=== PATIENT | male | born 1950 | race Caucasian/White ===

== ENCOUNTER → 2017-08-27 10:45 | Outpatient (CLI) | payer BC, SELFPAY ==
[2017-08-27 11:54] LABS: Absolute Lymphocyte Count 0.94 X10^3/ul (0.83-4.51); Absolute Neutrophil Count 2.4 X10^3/uL (2.0-7.7); Basophil# 0.01 X10^3/uL; Basophil% 0.3 % (0-1); Eosinophils% 5.2 % (0-5); Hematocrit 42.6 % (40-54); Hemoglobin 14.5 g/dl (13.0-16.5); Lymphocyte # 0.94 X10^3/ul (4.0); Lymphocyte % 24.2 % (19-41); Mean Corpuscular Hgb 31.1 pg (27.0-32.0); Mean Corpuscular Volume 91.4 fL (80-94); Mean Platelet Vol. 9.9 fl (6.2-12.0); Monocyte# 0.32 X10^3/uL; Monocyte% 8.2 % (0-10); Neutrophil % 61.8 % (47-70); Platelet Count 247 K/mm3 (150-450); RBC Distribution Width CV 13.4 % (11.6-14.6); RBC Distribution Width SD 44.8 fl (35.1-43.9); Red Blood Count 4.66 M/mm3 (4.6-6.2); White Blood Count 3.9 K/mm3 (4.4-11.0)
[2017-08-27 11:56] LABS: POSITIVE COUNT NO; POSITIVE DIFFERENTIAL NO; POSITIVE MORPHOLOGY NO
[2017-08-27 12:41] LABS: Hemoglobin A1c 5.4 % (4.2-6.3)
[2017-08-27 13:18] LABS: Cholesterol 149 mg/dL (200); High Density Lipoprotein 44 mg/dL; Magnesium 2.3 mg/dL (1.6-2.6); Rheumatoid Factor < 10.0 IU/mL (<15); T4 Free Direct 0.99 ng/dL (0.76-1.46); Thyroid Stim Hormone (TSH) 1.95 uIU/mL (0.358-3.74); Triglycerides 82 mg/dL; Very Low Density Lipoprotein 16 mg/dL (5-40)
[2017-08-28 10:48] LABS: Vitamin D,25 Hydroxy 19.8 ng/mL (29.95-100.01)
[2017-08-28 14:30] LABS: ANTINUCLEAR ANTIBODIES DIRECT Negative (Negative)
== END ==
PROVIDERS: Family Provider Family Medicine; PCP Family Medicine; Visit Provider Family Medicine
DX: Z00.00 Encounter for general adult medical examination without abnormal findings (principal); M25.50 Pain in unspecified joint; R53.83 Other fatigue; I48.0 Paroxysmal atrial fibrillation; R68.82 Decreased libido
CPT/HCPCS: 36415; 80061; 80162; 82306; 83036; 83735; 84403; 84439; 84443; 85025; 86038; 86431

== ENCOUNTER → 2018-08-28 10:32 | Outpatient (CLI) | payer BC, SELFPAY ==
[2018-08-28 13:11] LABS: Absolute Lymphocyte Count 0.93 X10^3/ul (0.83-4.51); Absolute Neutrophil Count 2.2 X10^3/uL (2.0-7.7); Basophil# 0.01 X10^3/uL; Basophil% 0.3 % (0-1); Eosinophil# 0.17 X10^3/uL; Eosinophils% 4.7 % (0-5); Hematocrit 43.2 % (40-54); Hemoglobin 14.8 g/dl (13.0-16.5); Lymphocyte # 0.93 X10^3/ul (4.0); Lymphocyte % 25.6 % (19-41); Mean Corp Hgb Conc 34.3 g/gl (32-36); Mean Corpuscular Hgb 31.5 pg (27.0-32.0); Mean Corpuscular Volume 91.9 fL (80-94); Mean Platelet Vol. 9.6 fl (6.2-12.0); Monocyte# 0.34 X10^3/uL; Monocyte% 9.4 % (0-10); Neutrophil # 2.17 X10^3/uL (2.7-7.7); Neutrophil % 59.7 % (47-70); Platelet Count 255 K/mm3 (150-450); RBC Distribution Width CV 13.6 % (11.6-14.6); RBC Distribution Width SD 46.1 fl (35.1-43.9); White Blood Count 3.6 K/mm3 (4.4-11.0)
[2018-08-28 13:12] LABS: POSITIVE COUNT NO; POSITIVE DIFFERENTIAL NO; POSITIVE MORPHOLOGY NO
[2018-08-28 13:13] LABS: ALB/GLOB Ratio 1.7 RATIO (0.9-2.4); AST(SGOT) 7 U/L (15-37); Alanine Aminotransfer ALT/SGPT 21 U/L (16-61); Alkaline Phosphatase 81 U/L (45-117); Anion Gap 4 (5-15); BUN 15 mg/dL (7-18); BUN/Creat Ratio 17.6 RATIO (10-20); Chloride 108 mmol/L (98-107); Cholesterol 173 mg/dL (200); Creatinine, Serum 0.85 mg/dL (0.70-1.30); EST Glomerular Filtration Rate 95 mL/min (>60); Est Glom Filt Rate - Afr Amer 115 mL/min (>60); Globulin 2.3 g/dL (2.2-4.2); Glucose 84 mg/dL (74-106); High Density Lipoprotein 42 mg/dL; Potassium 4.4 mmol/L (3.5-5.1); Protein, Total 6.3 g/dL (6.4-8.2); Sodium Level 139 mmol/L (136-145); Triglycerides 118 mg/dL; Very Low Density Lipoprotein 24 mg/dL (5-40)
== END ==
PROVIDERS: Family Provider Family Medicine; PCP Family Medicine; Visit Provider Family Medicine
DX: I48.0 Paroxysmal atrial fibrillation (principal)
CPT/HCPCS: 36415; 80053; 80061; 84443; 85025

== ENCOUNTER → 2019-09-03 09:49 | Outpatient (CLI) | payer BC, SELFPAY ==
[2019-09-03 12:48] LABS: Absolute Lymphocyte Count 0.79 X10^3/uL (0.83-4.51); Absolute Neutrophil Count 1.9 X10^3/uL (2.0-7.7); Basophil# 0.02 X10^3/uL; Basophil% 0.6 % (0-1); Eosinophil# 0.21 X10^3/uL; Eosinophils% 6.5 % (0-5); Hematocrit 42.1 % (40-54); Hemoglobin 13.5 g/dL (13.0-16.5); Lymphocyte # 0.79 X10^3/ul (4.0); Lymphocyte % 24.6 % (19-41); Mean Corp Hgb Conc 32.1 g/dL (32-36); Mean Corpuscular Hgb 30.7 pg (27.0-32.0); Mean Corpuscular Volume 95.7 fL (80-94); Mean Platelet Vol. 9.5 fl (6.2-12.0); Monocyte# 0.31 X10^3/uL; Monocyte% 9.7 % (0-10); NRBC Flagged by Analyzer 0 % (0-5); Neutrophil # 1.87 X10^3/uL (2.7-7.7); Neutrophil % 58.3 % (47-70); Platelet Count 245 K/mm3 (150-450); RBC Distribution Width CV 13.2 % (11.6-14.6); RBC Distribution Width SD 47.1 fl (35.1-43.9); White Blood Count 3.2 K/mm3 (4.4-11.0)
[2019-09-03 12:59] LABS: ALB/GLOB Ratio 1.4 RATIO (0.9-2.4); AST(SGOT) 12 U/L (15-37); Alanine Aminotransfer ALT/SGPT 22 U/L (16-61); Albumin, Serum 3.8 g/dL (3.2-5.0); Alkaline Phosphatase 82 U/L (45-117); Anion Gap 4 (5-15); BUN 14 mg/dL (7-18); BUN/Creat Ratio 15.9 RATIO (10-20); Calcium,Total 8.8 mg/dL (8.5-10.1); Chloride 107 mmol/L (98-107); Cholesterol 170 mg/dL (200); Creatinine, Serum 0.88 mg/dL (0.70-1.30); EST Glomerular Filtration Rate 91 mL/min (>60); Est Glom Filt Rate - Afr Amer 110 mL/min (>60); Globulin 2.7 g/dL (2.2-4.2); Glucose 94 mg/dL (74-106); High Density Lipoprotein 39 mg/dL; Magnesium 2.3 mg/dL (1.6-2.6); PSA,Total- Diagnostic 3.65 ng/mL (0.0-4.0); Potassium 4.2 mmol/L (3.5-5.1); Protein, Total 6.5 g/dL (6.4-8.2); Sodium Level 139 mmol/L (136-145); Thyroid Stim Hormone (TSH) 3.08 uIU/mL (0.358-3.74); Triglycerides 89 mg/dL; Very Low Density Lipoprotein 18 mg/dL (5-40)
== END ==
PROVIDERS: PCP Family Medicine; Referring Provider Family Medicine; Visit Provider Family Medicine
DX: R97.20 Elevated prostate specific antigen [PSA] (principal); I48.0 Paroxysmal atrial fibrillation
CPT/HCPCS: 36415; 80053; 80061; 83735; 84153; 84443; 85025

== ENCOUNTER → 2020-08-04 11:03 | Outpatient (CLI) | payer MEDICARE, OTHER, SELFPAY ==
[2020-08-04 12:10] LABS: Mean Corp Hgb Conc 32.6 g/dL (32-36); Mean Corpuscular Hgb 30.8 pg (27.0-32.0); Mean Corpuscular Volume 94.5 fL (80-94); Mean Platelet Vol. 8.8 fl (6.2-12.0); Platelet Count 247 K/mm3 (150-450); RBC Distribution Width CV 13.2 % (11.6-14.6); Red Blood Count 4.55 M/mm3 (4.6-6.2); White Blood Count 3.2 K/mm3 (4.4-11.0)
[2020-08-04 12:51] LABS: ALB/GLOB Ratio 1.4 RATIO (0.9-2.4); AST(SGOT) 16 U/L (15-37); Alanine Aminotransfer ALT/SGPT 26 U/L (16-61); Albumin, Serum 3.7 g/dL (3.2-5.0); Alkaline Phosphatase 88 U/L (45-117); Anion Gap 3 (5-15); BUN 15 mg/dL (7-18); BUN/Creat Ratio 18.5 RATIO (10-20); Chloride 108 mmol/L (98-107); Cholesterol 182 mg/dL (200); Creatinine, Serum 0.81 mg/dL (0.70-1.30); EST Glomerular Filtration Rate 100 mL/min (>60); Est Glom Filt Rate - Afr Amer 121 mL/min (>60); Globulin 2.6 g/dL (2.2-4.2); Glucose 89 mg/dL (74-106); High Density Lipoprotein 41 mg/dL; PSA,Total- Diagnostic 4.03 ng/mL (0.0-4.0); Protein, Total 6.3 g/dL (6.4-8.2); Sodium Level 139 mmol/L (136-145); Thyroid Stim Hormone (TSH) 2.78 uIU/mL (0.358-3.74); Triglycerides 103 mg/dL; Very Low Density Lipoprotein 21 mg/dL (5-40)
[2020-08-04 13:13] LABS: Hepatitis C Antibody Non-Reactive (Nonreactive)
== END ==
PROVIDERS: PCP Family Medicine; Referring Provider Family Medicine; Visit Provider Family Medicine
DX: Z12.5 Encounter for screening for malignant neoplasm of prostate (principal); Z11.59 Encounter for screening for other viral diseases; I48.0 Paroxysmal atrial fibrillation
CPT/HCPCS: 36415; 80053; 80061; 84153; 84443; 85027; 86803

== ENCOUNTER → 2021-01-16 16:43 | Outpatient (CLI) | payer MEDICARE, OTHER, SELFPAY ==
[2021-01-16 16:45] LABS: Bacteria 0 SEEN /hpf (None Seen); Squamous Epithelial Cells - UA 0 SEEN /hpf (0-5); White Blood Cells 0 SEEN /hpf (0-5)
[2021-01-16 17:49] LABS: Color, Urine Yellow (Yellow); Glucose, Dipstick Normal (Normal); Ketone-Dipstick Negative (Negative); Leukocyte Esterase-Dipstick Negative /ul (Negative); Nitrite-Dipstick Negative (Negative); Occult Blood-Urine 50 /ul (Negative); Protein-Dipstick 30 mg/dl (Negative); Specific Gravity, Urine 1.025 (1.002-1.030); Urine Bilirubin Dipstick Negative (Negative); Urine Clarity Clear (Clear); Urine Urobilinogen Normal (Normal)
[2021-01-16 17:57] LABS: Mucous, Urine 1+ /hpf (<or=2+); Red Blood Cells-Urine 5-10 SEEN /hpf (0-5)
== END ==
PROVIDERS: PCP Family Medicine; Visit Provider Family Medicine
DX: R30.0 Dysuria (principal)
CPT/HCPCS: 81001; 87086

== ENCOUNTER → 2021-01-17 11:32 | Outpatient (CLI) | payer MEDICARE, OTHER, SELFPAY ==
--- NOTE | 2021-01-17 11:34 | US_ITS ---
STUDY: RENAL ULTRASOUND - COMPLETE REASON FOR EXAM: Male, 70 years old. 2 day history of left flank pain. TECHNIQUE: Ultrasound evaluation of the kidneys was performed with real-time and static north-scale imaging. COMPARISON: None. FINDINGS: RIGHT KIDNEY: Normal location of the right kidney, which is normal in size. The right kidney measures 12.5 cm x 5.6 x 5.3 cm. There is a normal cortex of the right kidney. The renal cortex measures 1.4 cm. There is a 1 cm x 1.3 cm x 0.5 cm cyst. There is a 6 mm nonobstructive right intrarenal calculus. There is no right hydronephrosis. DISTAL RIGHT URETER: There is non-visualization of the distal right ureter. There is no demonstrated right ureterovesical junction calculus. There is a visualized right ureteral jet. LEFT KIDNEY: Normal location of the left kidney, which is normal in size. The left kidney measures 11.6 cm x 5.2 cm x 6.6 cm. There is a normal cortex of the left kidney. The renal cortex measures 1.7 cm. There is a 1.1 cm x 1.2 cm x 1.2 cm renal cyst. There is a 4 mm nonobstructive intrarenal calculus. There is no left hydronephrosis. DISTAL LEFT URETER: There is non-visualization of the distal left ureter. There is no demonstrated left ureterovesical junction calculus. There is no demonstrated left ureteral jet. BLADDER: The distended urinary bladder has a volume of 58 ml. There is a normal wall thickness of the distended urinary bladder. There is no demonstrated mass within the urinary bladder. There are no demonstrated bladder calculi. The prostate measures 4.4 cm x 5.47 x 5.1 cm. This causes indentation at the bladder base. US/Kidney and Bladder IMPRESSION: Small bilateral renal cysts. Nonobstructive bilateral intrarenal calculi. Electronically Signed: Leeroy Tay MD at 15:15 EDT , Service support ,
== END ==
PROVIDERS: PCP Family Medicine; Referring Provider Family Medicine; Visit Provider Family Medicine
DX: R10.9 Unspecified abdominal pain (principal)
CPT/HCPCS: 76770

== ENCOUNTER → 2021-03-20 12:35 | Outpatient (CLI) | payer MEDICARE, OTHER, SELFPAY ==
--- NOTE | 2021-03-20 12:39 | RAD_ITS ---
STUDY: X-RAY - CERVICAL SPINE REASON FOR EXAM: Male, 70 years old. R arm pain, triceps and upper shoulder blade - consistent with re TECHNIQUE: XR Spine Cervical 6 or More Views COMPARISON: None FINDINGS: Normal anterior atlantoaxial articulation. The odontoid process is obscured by the overlying hard palate on the open mouth view. Therefore, it is not fully evaluated by plain film. There is straightening of the normal cervical lordosis. There is multi-level endplate spondylosis. There is multi-level degenerative disc disease with multilevel disc space narrowing. There is multi-level osseous foraminal stenosis. The soft tissue structures are unremarkable. RAD/Cerv Spine Obl/Flex/Ext Comp IMPRESSION: There are degenerative changes as noted above. There is mild straightening of the normal cervical lordosis. This can suggest neck strain. The odontoid process is obscured by the overlying hard palate on the open mouth view. Therefore, it is not fully evaluated by plain film. Electronically Signed: Chino Root MD at 17:13 EST , Service support ,
== END ==
PROVIDERS: PCP Family Medicine; Referring Provider Family Medicine; Visit Provider Family Medicine
DX: M54.12 Radiculopathy, cervical region (principal)
CPT/HCPCS: 36415; 72052

== ENCOUNTER 2021-05-17 11:30 | Outpatient (RCR) | payer MEDICARE, OTHER, SELFPAY ==
--- NOTE | 2021-03-22 12:03 | HP.PTEVAL_ITS ---
Patient's Visit Information JOSE ARMANDO GOEL is a 70 year old M referred to Physical Therapy by Dr. Cresencio Rey MD with a diagnosis of RIGHT ARM PAIN. Date of Evaluation: 03/22/21 Physical Therapist: Young Linares, PT, Cert MDT, OCS - Visit Plan Frequency: 2x /Week Duration: 4 Weeks Plan: PT INTERVETIONS CERVICAL /POSTURAL EX'S,US ,ICTX 15#/19# [id number] AND MANUAL THERAPY - Subjective This 70 y/o male presents to physical therapy with right arm pain since Feb 2021 . Patient has had right posterior shoulder and anterior chest along with numbness triceps with radiating symptoms in arm. Seen DR Nix provided steriod . Seen chiropractor helped temporarily and traction. Patient had x-rays showed DDD. Patient takes Advil. Aggravating factors sleeping on right side, turning neck, driving, sitting . Alleviating factors rest left side. Patient denies LOJA ,dizziness/tinnitus. No abnormal pain. Patient works as talent acquisition administrator ,[employer]. Patient described constant ache ,worse with stabbing. Patient pain affects ability perform ADLS and fire . Patient symptoms affects in affects QOL. SOCIAL: . VOCATION: retire ,volunteer - Pain Right Scapula Pain Intensity (Out of 10): 8 Shoulder Pain Intensity (Out of 10): 8 Pain Intensity Range: 10 - Objective POSTURE: mild forward posture. GAIT: reciprocal pattern. NEURO: c/o paresthesia right arm, reflexes C5-6-7 2/3. AROM: BUE WFL. MMT: 4/5 except shoulders 4-/5. CERVICAL ROM: flexion min loss ,lateral flexion/rotation mod/severe loss ,extension mod/severe loss - Special Tests C/S Radiculapathy - Left Upper limb tension test: Negative C/S Radiculapathy - Right Upper limb tension test: Negative C/S Radiculapathy - Left Spurlings: Negative C/S Radiculapathy - Right Spurlings: Positive C/S Radiculapathy - Left Cervical distraction: Negative C/S Radiculapathy - Right Cervical distraction: Negative C/S Radiculapathy - Left Relief test: Negative C/S Radiculapathy - Right Relief test: Negative - Balance/Special Test Scores Oswestry Neck Score: 20 - Goals Goal 1:: I with HEP for neck arm pain Goal Time Frame: 4-6 Weeks Goal 2:: Improve posture for ADL'S Goal Time Frame: 4-6 Weeks Goal 3:: Patient to demonstrate 50% improvement with decrease right arm pain to improve function Goal Time Frame: 4-6 Weeks Goal 4:: Patient improve cervical ROM for function of recovery Goal Time Frame: 4-6 Weeks Goal 5:: Patient to improve neck owestry score by 5 points by to improve QOL and function - Rehabilitation Potential Physical Therapy Diagnosis: This patient has possible lateral foraminal stenosis right with symptoms affecting right arm and pain with positioning sitting/sleeping and test movements ,traction is better thus benefit from skilled PT Rehabilitation Potential: Good - Anticipated Interventions Patient/Client Instruction: Educate patient on: Condition, Plan of Care For the Purpose of:: To decrease pain, To increase ROM, To improve muscle performance and motor function, To increase tolerance to activity/condition/position, To improve performance and independence with ADL's, To improve ability of physical actions for home/community/work/leisure, To improve health of tissue, To decrease soft tissue restriction, To increase flexibility/ROM, To reduce risk of recurrence Therapeutic Exercise to Include: Strength training, Postural training, Flexibilty training, Active ROM For the Purpose of:: To decrease pain, To improve muscle performance and motor function, To improve ability to perform ADL's, To increase tolerance to activity/condition/position, To improve performance and independence with ADL's, To improve ability of physical actions for home/community/work/leisure, To improve health of tissue, To decrease soft tissue restriction, To increase flexibility/ROM, To reduce risk of recurrence TENS: Yes IF ES: Yes Cryotherapy (ice pack, ice massage): Yes Thermo therapy (hot pack): Yes Ultrasound (thermal/non thermal): Yes Intermittent cervical traction: Yes - 15#-20# For the Purpose of:: To decrease pain, To increase ROM, To improve health of tissue, To decrease soft tissue restriction, To increase flexibility/ROM Thank you for the opportunity to evaluate your patient. For Medicare and Medicare HMO plans, please review the plan of care and approve it. It will need to be FAXED BACK to us at [phone] for Medicare purposes. For Medicare only, by signing this I certify the plan of care. Please let me know if there are questions or concerns regarding this plan of care. Physician Signature: Date:
--- NOTE | 2021-04-17 11:51 | HP.PTREVAL ---
Dr. Cresencio Rey MD, It has been my pleasure to treat JOSE ARMANDO GOEL over the last 9 visits for RIGHT ARM PAIN. Please see the progress note below for an update on the physical therapy plan of care! Subjective: Today feeling good ..taking less advil. Sleeping better.. Has occasional numbness in tripcep. Symptoms described as tightness Objective/Function: POSTURE: mild forward head ,rounded shoulders. NEURO: occasional paresthesia deltoid. MMT: 4/5 grossly. CERVICAL ROM: flexion min/mod loss, lateral flexion/rotation min/mod loss, extension mod loss Plan Plan: CONT POC 2XWEEK FOR 4WEEKS. PT INTERVETIONS CERVICAL /POSTURAL EX'S,US ,ICTX 15#/22# [id number] AND MANUAL THERAPY Balance/Gait/Functional tests - Balance/Special Test Scores Oswestry Neck Score: 11 Goals Goal 1:: I with HEP for neck arm pain Goal Time Frame: 4-6 Weeks Goal Progress: Progressing Goal 2:: Improve posture for ADL'S Goal Time Frame: 4-6 Weeks Goal 3:: Patient to demonstrate 70% improvement with decrease right arm pain to improve function(updated goal) Goal Time Frame: 4-6 Weeks Goal 4:: Patient improve cervical ROM for function of recovery to do job demands and housework tasks 75% of the time. (updated goal) Goal Time Frame: 4-6 Weeks Goal 5:: Patient to improve neck owestry score by 5 points by to improve QOL and function( updated goal) Anticipated Interventions Patient/Client Instruction: Educate patient on: Condition, Plan of Care For the Purpose of:: To decrease pain, To increase ROM, To improve muscle performance and motor function, To increase tolerance to activity/condition/position, To improve performance and independence with ADL's, To improve ability of physical actions for home/community/work/leisure, To improve health of tissue, To decrease soft tissue restriction, To increase flexibility/ROM, To reduce risk of recurrence Therapeutic Exercise to Include: Strength training, Postural training, Flexibilty training, Active ROM For the Purpose of:: To decrease pain, To improve muscle performance and motor function, To improve ability to perform ADL's, To increase tolerance to activity/condition/position, To improve performance and independence with ADL's, To improve ability of physical actions for home/community/work/leisure, To improve health of tissue, To decrease soft tissue restriction, To increase flexibility/ROM, To reduce risk of recurrence TENS: Yes IF ES: Yes Cryotherapy (ice pack, ice massage): Yes Thermo therapy (hot pack): Yes Ultrasound (thermal/non thermal): Yes Intermittent cervical traction: Yes - 15#-20# For the Purpose of:: To decrease pain, To increase ROM, To improve health of tissue, To decrease soft tissue restriction, To increase flexibility/ROM Please do not hesitate to contact me at [phone] by phone or if you have questions or concerns regarding this new plan of care! Sincerely, Young Linares, PT, Cert MDT, OCS
--- NOTE | 2021-05-17 12:00 | HP.PTDCSUM ---
It has been my pleasure to treat JOSE ARMANDO GOEL referred by Dr. Cresencio Rey MD, with the diagnosis of RIGHT ARM PAIN for a total of 18 visit(s). Discharge Date: 05/17/21 Please see the following information for a summary of their discharge status. Subjective: Doing well ready for d/c Right Scapula Pain Intensity (Out of 10): 0 Shoulder Pain Intensity (Out of 10): 0 % Improvement: 85 Objective/Function: POSTURE: WFL. CERVICAL ROM: FLEXION MIN LOSS,ROTATION MIN/MOD LOSS,LATERAL FLEXION MOMD LOSS. MMT: 4/5 grossly Goal 1:: I with HEP for neck arm pain Goal Progress: Goal Met Goal 2:: Improve posture for ADL'S Goal Progress: Goal Met Goal 3:: Patient to demonstrate 70% improvement with decrease right arm pain to improve function(updated goal) Goal Progress: Goal Met Goal 4:: Patient improve cervical ROM for function of recovery to do job demands and housework tasks 75% of the time. (updated goal) Goal Progress: Goal Met Goal 5:: Patient to improve neck owestry score by 5 points by to improve QOL and function( updated goal) Goal Progress: Goal Met Plan: D/C TO HEP Discharge Comments: hep If there are questions or concerns regarding this patient's physical therapy, please feel free to call me at [phone]. Thank you for the referral of this patient. Sincerely, Young Linares, PT, Cert MDT, OCS Balance/Gait/Functional tests - Balance/Special Test Scores Oswestry Neck Score: 0
== END 2021-05-17 19:00 | disposition home or self-care (01) ==
LOC: PT 11:30
PROVIDERS: PCP Family Medicine; Referring Provider Family Medicine; Visit Provider Family Medicine
DX: M79.621 Pain in right upper arm (principal)
CPT/HCPCS: 97012; 97035; 97110; 97162; 97530

== ENCOUNTER 2021-08-08 13:49 | Emergency (ER) | payer MEDICARE, OTHER, SELFPAY ==
[2021-08-08 13:51] VITALS: BP 165/102; PULSE 67; RESP 16; TEMP 36.6; O2SAT 100; BMI 26.1
--- NOTE | 2021-08-08 14:06 | EKG12_ITS ---
Test Reason : BACK PAIN Blood Pressure : / mmHG Vent. Rate : 064 BPM Atrial Rate : 064 BPM P-R Int : 150 ms QRS Dur : 092 ms QT Int : 414 ms P-R-T Axes : 062 029 030 degrees QTc Int : 427 ms Normal sinus rhythm Normal ECG Confirmed by KEVEN MARTINI, TATIANA ([id number]), mapping editor AMY ELLIOTT ([id number]) on 08/10/2021 10:12:00 AM Referred By: Confirmed By:TATIANA BACA MD
--- NOTE | 2021-08-08 14:13 | EDS_ITS ---
HPI History of Present Illness Chief Complaint: Back Detail of Chief Complaint: Back pain for months with metastatic lesion T2 with cord compression Informant: patient, parent and other (Dr. Smith called prior to patient's arrival and prefers transfer to tertiary center) Onset/Context/Timing Onset: Month(s) Injury: - (No history of trauma) Timing: Continuous Quality: Sharp and Aching Location: Thoracic Current Severity: Moderate Maximum Severity: Severe Worsened by: improves with Movement Relieved by: Nothing Associated Symptoms Associated Symptoms: - (No weight loss or night sweats. No change in bowel. No paresthesia or anesthesia extremities); Negative for Numbness, Tingling, Radiation to Right Leg, Radiation to Left Leg, Fever, Abdominal Pain, Dysuria, Unable to Ambulate, Unable to Transfer, Urinary Retention, Urinary Incontinence, Constipation and Fecal Incontinence Narrative Narrative: Patient is a 70-year-old male with history of atrial fibrillation who takes an aspirin a day. He presents from Dr. Smith's office. He had an MRI of his back which revealed a metastatic lesion to T2. There is cord compression. Patient took his last dose of methylprednisolone this morning. He presently denies paresthesia, anesthesia motors. He denies bowel bladder dysfunction. He denies any altered sensation on his torso. He complains of pain. He has no other complaints Prior similar symptoms: Yes Recent Illness/Hospitalization: No [facility] Medical History (Updated 08/08/21 @ 16:[address] Sukhdeep Limon MD) Atrial fibrillation Home Medications aspirin [Aspir-81] 81 mg PO BID 08/08/21 [History Last Taken Unknown] gabapentin 100 mg PO TID 08/08/21 [History Last Taken Unknown] oxycodone-acetaminophen 1 tab PO Q6H PRN 08/08/21 [History Last Taken Unknown] oxycodone-acetaminophen 1 tab PO Q6H PRN PRN 5 Days #20 tablet 08/08/21 [Rx Last Taken Unknown] sotalol 40 mg PO BREAKFAST 08/08/21 [History Last Taken Unknown] sotalol 80 mg PO QHS 08/08/21 [History Last Taken Unknown] Allergy/AdvReac Type Severity Reaction Status Date / Time No Known Allergies Allergy Verified 08/08/21 13:54 Social History (Updated 08/08/21 @ 14:[address] Sukhdeep Limon MD) household members: spouse Smoking Status: Never smoker substance use type: does not use ROS ROS ED Constitutional Constitutional ED: Denies chills, fever(s), subjective, sweats or weight loss Eyes Eyes: Denies blurry vision, change in vision or diplopia ENT ENT ED: Denies ear pain, rhinorrhea or sore throat Cardiovascular Cardiovascular: Denies chest pain, orthopnea, palpitations, paroxysmal nocturnal dyspnea or racing heartbeat Respiratory/Chest Respiratory/Chest: Denies dyspnea, dyspnea on exertion, orthopnea, paroxysmal nocturnal dyspnea or sputum Gastrointestinal Gastrointestinal: Reports other Details: No change in color, consistency or caliber of his stool. He had a colonoscopy performed in March 2021 which was reportedly unremarkable ; Denies abdominal pain, constipation, diarrhea, melena, nausea or vomiting Genitourinary Genitourinary ED: Denies dysuria, hematuria or urinary frequency Musculoskeletal Musculoskeletal: Denies arthralgias, myalgias or neck pain Integumentary Denies abscess, Abrasions or rash Neurologic Neurologic: Denies headache(s), paresthesias or weakness Psychiatric Psychiatric: Denies anxiety or depression Hematologic/Lymphatic Hematologic/Lymphatic: Denies easy bleeding, easy bruising or lymphadenopathy Allergic/Immunologic Allergic/Immunologic ED: Denies urticaria EXAM Physical Exam Const Vital Signs: 08/08/21 13:51 Temperature 97.8 F Temperature Source Temporal Pulse Rate 67 Respiratory Rate 16 Blood Pressure 165/102 H Blood Pressure Mean 123 Pulse Ox 100 Oxygen Delivery Method Room Air Positive well nourished and well developed General Appearance ED: well developed; Negative for NAD or pallor HEENT Reports moist mucous membranes HEENT Narrative: Ears normal. Nares patent. Uvula midline. No erythema or exudate the posterior pharynx. There is no cervical lymphadenopathy. Negative for trauma or tenderness Eyes PERRL and EOMs intact bilaterally General Eye ED: Yes other; Negative for pale conjunctiva or scleral icterus Neck no lymphadenopathy, supple and no JVD General: Negative for tenderness Resp normal respiratory effort and clear to auscultation bilaterally Cardio regular rate, regular rhythm, S1 normal heart sound, S2 normal heart sound and no murmurs GI normal to inspection, nondistended, normoactive bowel sounds, soft to palpation, non-tender and non-distended Back/Spine normal to inspection; Negative for no thoracic nor lumbar tenderness General Back: Negative for CVA tenderness or scar(s) Cervical Spine: Negative for cervical spine tenderness and Negative for paracervical muscle tenderness Thoracic Spine / Upper Back: paraspinal muscle tenderness Extremity normal to inspection and no clubbing, cyanosis or edema General Extremety ED: Negative for edema or tenderness General Extremity: Negative for edema Neuro oriented x3 and no sensory deficits noted Neuro Narrative: There is no altered sensation on the torso to touch. The bicep, brachialis and tricep reflexes are 2+ as well. Sensorium / Orientation: alert Motor Exam: strength 5/5 throughout Deep Tendon Reflexes: Rt Patellar (L4): 2+, Lt Patellar (L4): 2+, Rt Ankle (S1): 2+ and Lt Ankle (S1): 2+ Deep Tendon Reflexes Back: Rt Patellar (L4): 2+, Lt Patellar (L4): 2+, Rt Ankle (S1): 2+ and Lt Ankle (S1): 2+ Plantar Reflex: Downgoing: bilateral (There is no clonus.) Psych mental status grossly normal Skin no rashes or lesions noted and no wounds General Skin Exam: Negative for jaundice or pallor MDM MDM MDM Narrative Medical decision making narrative: Patient presents for transfer to tertiary care center. Since the concern is that he has metastatic lesion with cord compression will obtain chest x-ray especially since he has history of smoking. Also will obtain comprehensive metabolic panel to assess renal function, electrolytes specifically calcium and alkaline phosphatase. Spoke with Dr. Dumont neurosurgeon at [facility]. Since patient has no neurologic deficits and there is no beds available at [facility] he recommended patient calling his office and his office will also reach out to him for him to be seen at the latest by the end of the week. Patient was told he we made a priority so that they can biopsy the mass and determine what best to do. Patient states that would be fine. He was discharged with prescription for Percocet. Lab Data Attestation: I reviewed the patient's lab results. Lab results narrative: White count is under Labs: Laboratory Results - last 24 hr 08/08/21 08/08/21 14:29 14:29 WBC 9.9 RBC 4.68 Hgb 14.9 Hct 45.1 MCV 96.4 H MCH 31.8 MCHC 33.0 RDW Std Deviation 46.4 H RDW Coeff of Avtar 13.2 Plt Count 344 MPV 8.9 Immature Gran % (Auto) 0.300 Neut % (Auto) 80.6 H Lymph % (Auto) 10.5 L [place] % (Auto) 8.0 Eos % (Auto) 0.5 Baso % (Auto) 0.1 Absolute Neuts (auto) 8.0 H Absolute Lymphs (auto) 1.04 Nucleated RBC % 0 Sodium 140 Potassium 4.0 Chloride 104 Carbon Dioxide 30.0 Anion Gap 6 BUN 15 Creatinine 0.91 Estim Creat Clear Calc 84.14 Est GFR (MDRD) Af Amer 106 Est GFR (MDRD) Non-Af 87 BUN/Creatinine Ratio 16.5 Glucose 92 Calcium 9.7 Total Bilirubin 0.50 AST 12 L ALT 26 Alkaline Phosphatase 95 Total Protein 6.9 Albumin 3.5 Globulin 3.4 Albumin/Globulin Ratio 1.0 Radiography X-Ray: - (2 view chest x-ray was independently interpreted by me and reveals chronic changes. No acute findings. Cardiac silhouette and size normal. Perihilar regions unremarkable. Osseous structures reveal degenerative changes of the thoracic spine. This was independently interpreted by me [id number]) Diagnostic Testing: Clinical Impression(s) from Imaging Studies Chest X-Ray 08/08/21 14:38 IMPRESSION: No acute abnormalities. Electronically Signed: Leeroy Tay MD at 14:53 EDT , EKG Initial EKG: Attestation: I personally reviewed and interpreted this EKG as follows: Interpretation: Sinus Rhythm (EKG is normal with a ventricular rate of 64. DC interval is under 50 ms. QRS durations 92 ms. QT duration 414 ms. [place] is normal.) Discharge Plan Triage Chief Complaint: Back ED Provider: Sukhdeep Limon Dx/Rx/DC Orders Clinical Impression: Metastasis to spinal column Instructions: ED Tumor, Uncertain Cause Prescriptions: New oxycodone-acetaminophen [oxycodone-acetaminophen] 1 TABLET tablet 1 tab PO Q6H PRN PRN (Reason: pain) 5 Days Qty: 20 RF: 0 No Action sotalol 80 mg Tablet 80 mg PO QHS RF: 0 sotalol 80 mg Tablet 40 mg PO BREAKFAST RF: 0 aspirin [Aspir-81] 81 mg Tablet,Delayed Release (/Ec) 81 mg PO BID RF: 0 oxycodone-acetaminophen 5-325 mg Tablet 1 tab PO Q6H PRN (Reason: Pain) RF: 0 gabapentin 100 mg Tablet 100 mg PO TID RF: 0 Primary Care Provider: Cresencio Rey Referrals: Cresencio Rey MD [Primary Care Provider] - Activity Restrictions/Additional Instructions: Call Dr. Dumont office tomorrow. His telephone number is [phone] Disposition Disposition: Home, Self Care
[2021-08-08] MEDS: 0.9% Normal Saline 1,000 ML 150 ML IV (14:28)
[2021-08-08 14:34] LABS: Absolute Lymphocyte Count 1.04 X10^3/uL (0.83-4.51); Basophil# 0.01 X10^3/uL; Basophil% 0.1 % (0-1); Eosinophil# 0.05 X10^3/uL; Eosinophils% 0.5 % (0-5); Hematocrit 45.1 % (40-54); Hemoglobin 14.9 g/dL (13.0-16.5); Lymphocyte # 1.04 X10^3/ul (0.83-4.51); Lymphocyte % 10.5 % (19-41); Mean Corpuscular Hgb 31.8 pg (27.0-32.0); Mean Corpuscular Volume 96.4 fL (80-94); Mean Platelet Vol. 8.9 fl (6.2-12.0); Monocyte# 0.79 X10^3/uL; NRBC Flagged by Analyzer 0 % (0-5); Neutrophil # 7.98 X10^3/uL (2.7-7.7); Neutrophil % 80.6 % (47-70); Platelet Count 344 K/mm3 (150-450); RBC Distribution Width CV 13.2 % (11.6-14.6); RBC Distribution Width SD 46.4 fl (35.1-43.9); Red Blood Count 4.68 M/mm3 (4.6-6.2); White Blood Count 9.9 K/mm3 (4.4-11.0)
--- NOTE | 2021-08-08 14:38 | RAD_ITS ---
STUDY: X-RAY CHEST REASON FOR EXAM: Male, 70 years old. Metastatic cancer to spine TECHNIQUE: PA and lateral views of the chest. COMPARISON: None. FINDINGS: The lungs are clear and expanded. Scattered calcified granulomas. There is no demonstrated pleural abnormality. Normal size heart. Normal mediastinum and johnie. Normal visualized pulmonary arteries. There is atherosclerotic tortuosity of the aortic arch and descending thoracic aorta. There is demineralization of the osseous structures. Normal visualized ribs, clavicles, and shoulders. There is no demonstrated abnormality of the visualized soft tissue structures of the upper abdomen. RAD/Chest PA and Lateral IMPRESSION: No acute abnormalities. Electronically Signed: Leeroy Tay MD at 14:53 EDT ,
[2021-08-08 14:49] LABS: AST(SGOT) 12 U/L (15-37); Alanine Aminotransfer ALT/SGPT 26 U/L (16-61); Albumin, Serum 3.5 g/dL (3.2-5.0); Alkaline Phosphatase 95 U/L (45-117); Anion Gap 6 (5-15); BUN 15 mg/dL (7-18); BUN/Creat Ratio 16.5 RATIO (10-20); Calcium,Total 9.7 mg/dL (8.5-10.1); Chloride 104 mmol/L (98-107); Creatinine, Serum 0.91 mg/dL (0.70-1.30); EST Glomerular Filtration Rate 87 mL/min (>60); Est Glom Filt Rate - Afr Amer 106 mL/min (>60); Estimated Creatinine Clearance 84.14 ml/min; Globulin 3.4 g/dL (2.2-4.2); Glucose 92 mg/dL (74-106); Protein, Total 6.9 g/dL (6.4-8.2); Sodium Level 140 mmol/L (136-145)
[2021-08-08] MEDS: HYDROmorphone 1 MG/ML Syringe IV (14:56)
--- NOTE | 2021-08-08 15:24 | NURSING ---
MADE INITIAL CALL TO [facility] MAIN FAXED FACESHEET
--- NOTE | 2021-08-08 15:59 | NURSING ---
[facility] DR PENA FOR DR BEE
[2021-08-08 16:11] VITALS: BP 175/94; PULSE 71; RESP 18; O2SAT 95
--- NOTE | 2021-08-14 15:41 | CASEMGMT ---
ED follow-up phone call: KELSEA MARINO attempted to complete follow-up phone call at this time. No answer, voice message left with return contact information.
== END 2021-08-08 16:27 | disposition home or self-care (01) ==
PROVIDERS: Emergency Provider Emergency Medicine; PCP Family Medicine; Visit Provider Emergency Medicine
DX: C79.51 Secondary malignant neoplasm of bone (principal); G95.20 Unspecified cord compression; Z87.891 Personal history of nicotine dependence; R97.20 Elevated prostate specific antigen [PSA]
CPT/HCPCS: 36415; 71046; 80053; 84153; 85025; 87811; 93005; 99283; J7030; A4216

== ENCOUNTER → 2021-08-08 | Outpatient (CLI) | payer MEDICARE, OTHER, SELFPAY ==
[2021-08-08 12:43] LABS: PSA,Total- Diagnostic 6.18 ng/mL (0.0-4.0)
== END | disposition home or self-care (01) ==
LOC: MTLAB 09:37
PROVIDERS: PCP Family Medicine; Referring Provider Family Medicine; Visit Provider Family Medicine
DX: Z00.00 Encounter for general adult medical examination without abnormal findings (principal); R97.20 Elevated prostate specific antigen [PSA]
CPT/HCPCS: 36415; 84153

== ENCOUNTER 2021-10-21 09:59 | Inpatient (IN) | payer MEDICARE, OTHER, SELFPAY ==
[2021-10-21] VITALS (23 sets, daily range): BP systolic 81–119; BP diastolic 45–70; PULSE 81–110; RESP 15–23; TEMP 36.5–39.4; O2SAT 93–100; BMI 26.9; BMI 26.8
--- NOTE | 2021-10-21 10:05 | ED.RN ---
PT REPORTS DRANK WATER ON WAY OVER. JUST PRIOR TO ORAL TEMP. TOOK TEMP TA WAS 103.0.
--- NOTE | 2021-10-21 10:15 | RAD_ITS ---
STUDY: X-RAY CHEST REASON FOR EXAM: Male, 71 years old. Chest pain and cough TECHNIQUE: Single AP portable view of the chest. COMPARISON: 08/08/2021 FINDINGS: EKG leads overlie the chest The lungs are clear and expanded. There is no demonstrated pleural abnormality. Normal size heart. Normal mediastinum and johnie. Normal visualized pulmonary arteries. Normal visualized aortic arch and descending thoracic aorta. Normal visualized thoracic spine. Normal visualized ribs, clavicles, and shoulders. There is no demonstrated abnormality of the visualized soft tissue structures of the upper abdomen. RAD/Chest 1 View (Portable) IMPRESSION: No acute pulmonary process Electronically Signed: Colton Barry MD at 11:04 EDT ,
--- NOTE | 2021-10-21 10:15 | EKG12_ITS ---
Test Reason : FEVER Blood Pressure : / mmHG Vent. Rate : 105 BPM Atrial Rate : 105 BPM P-R Int : 186 ms QRS Dur : 166 ms QT Int : 370 ms P-R-T Axes : 071 060 -12 degrees QTc Int : 489 ms Sinus tachycardia Right bundle branch block Abnormal ECG Confirmed by EDDIE MARTINI, DORA ([id number]), material expeditor MICK COATES ([id number]) on 10/23/2021 11:03:48 AM Referred By: MC Confirmed By:DORA MORGAN MD
--- NOTE | 2021-10-21 10:16 | EX.ED.DYSGE1 ---
HPI <SANTOS Hadley - Last Filed: 10/21/21 12:36> History of Present Illness Chief Complaint: Fever Narrative Narrative: 71-year-old male with past medical history of A. fib, recent diagnosis of multiple myeloma presents with fever and chills that started at 7:30 AM this morning. He has no other symptoms. He states he just felt tired yesterday. He still been eating and drinking normally. No cough or congestion, chest pain or shortness of breath, vomiting or diarrhea, or urinary symptoms. He states his cancer was diagnosed after he had shoulder pain and had an MRI of the C-spine. It showed bony destruction of the T2 level and he had a fusion of T1-T3 at [facility] on August 18. He had 10 treatments of radiation of the spine and just started chemotherapy with Dr. Kong on October 17. He said he had MRI and CT scans showing the cancer spread to his left hip confirmed by biopsy. These were done at [facility]. [facility] <SANTOS Hadley - Last Filed: 10/21/21 12:36> [facility] Medical History (Updated 10/21/21 @ 20:[address] Mian Maldonado MD) Atrial fibrillation Cancer Kidney stones Subdural hematoma Home Medications aspirin 81 mg tablet,delayed release 81 mg PO BID 08/08/21 [History Last Taken Unknown] gabapentin 100 mg tablet 100 mg PO TID 08/08/21 [History Last Taken Unknown] acyclovir 400 mg tablet 400 mg PO BID 10/21/21 [History Last Taken Unknown] atenolol 25 mg tablet 12.5 mg PO QHS 10/21/21 [History Last Taken Unknown] bortezomib 3.5 mg injection powder for solution (Velcade) 1.3 mg IV TUFR 10/21/21 [History Last Taken Unknown] cyclobenzaprine 5 mg tablet 5 mg PO TID 10/21/21 [History Last Taken Unknown] dexamethasone 4 mg tablet (Decadron) 8 mg PO DAILY Check with primary doctor 10/21/21 [History Last Taken Unknown] flecainide 150 mg tablet 150 mg PO Q12H Check with primary doctor 10/21/21 [History Last Taken Unknown] lenalidomide 15 mg capsule (Revlimid) 15 mg PO DAILY 10/21/21 [History Last Taken Unknown] zoledronic acid 4 mg/100 mL in mannitol 5 %-water intravenous piggybck 1 ea IV QMONTH Check with primary doctor 10/21/21 [History Last Taken 10/11/21 06:00] Allergy/AdvReac Type Severity Reaction Status Date / Time No Known Allergies Allergy Verified 08/08/21 13:54 Family History (Updated 10/21/21 @ 12:[address] Sohail Martínez MD) Father No problems noted. Mother Brain tumor Social History (Updated 08/08/21 @ 14:[address] Sukhdeep Limon MD) household members: spouse Smoking Status: Never smoker substance use type: does not use ROS <SANTOS Hadley - Last Filed: 10/21/21 12:36> ROS ED ROS Narrative Constitutional: Positive for fever, chills, malaise. Eyes: Negative for visual change. ENT: Negative for sore throat, ear pain, rhinorrhea. CVS: Negative for palpitations, chest pain, syncope. Respiratory: Negative for shortness of breath, cough, orthopnea. GI: Negative for abdominal pain, nausea, vomiting, diarrhea, constipation, melena, hematochezia. : Negative for dysuria, hematuria or frequency. Neuro: Negative for headache, motor/sensory dysfunction. Skin: Negative for rash, abscess, or wound. Musc: Negative for joint pain, swelling, trauma. Heme: Negative for easy bruising, bleeding, lymphadenopathy. EXAM <SANTOS Hadley - Last Filed: 10/21/21 12:36> Physical Exam Narrative Exam Narrative: CONST: Patient sitting in no acute distress. EYES: Normal inspection. ENT: Normal inspection, slightly dry mucous membranes. NECK: Normal inspection. RESP: No respiratory distress, CTAB. CVS: Regular rate and rhythm, no murmur, no gallop. ABD: Soft and nontender, no guarding or rebound, nondistended. Back: Healed surgical incision over T-spine has some surrounding redness but he states this is chronic from the radiation treatments. SKIN: Color normal, no rash, warm, dry, intact. EXTREMITIES: Normal appearance, no pedal edema. NEURO: Oriented x4. PSYCH: Normal affect. Const Vital Signs: 10/21/21 09:59 10/21/21 10:04 10/21/21 10:10 Temperature 98.6 F 103.0 F H Temperature Source Oral Temporal Pulse Rate 110 H Respiratory Rate 18 Respiratory Effort Normal Non-Labored Respiratory Pattern Normal Blood Pressure 99/58 L Blood Pressure Mean 71 Pulse Ox 100 Oxygen Delivery Method 10/21/21 10:24 10/21/21 10:31 10/21/21 10:49 Temperature 101.8 F H Temperature Source Oral Pulse Rate Respiratory Rate Respiratory Effort Respiratory Pattern Blood Pressure Blood Pressure Mean Pulse Ox 95 Oxygen Delivery Method Room Air Room Air 10/21/21 11:21 10/21/21 11:21 10/21/21 11:23 Temperature 98.1 F 98.1 F Temperature Source Oral Oral Pulse Rate 97 97 Respiratory Rate 22 H 22 H Respiratory Effort Respiratory Pattern Blood Pressure 112/63 112/63 Blood Pressure Mean 79 Pulse Ox 93 93 Oxygen Delivery Method Room Air Room Air 10/21/21 12:14 10/21/21 12:14 10/21/21 12:20 Temperature 98.5 F 98.5 F Temperature Source Oral Oral Pulse Rate 93 92 Respiratory Rate 16 16 Respiratory Effort Respiratory Pattern Blood Pressure 89/45 L 94/58 L Blood Pressure Mean 59 70 Pulse Ox 94 95 Oxygen Delivery Method Room Air Room Air <Dr. Mian Maldonado MD - Last Filed: 10/21/21 20:58> Physical Exam Const Vital Signs: 10/21/21 09:59 10/21/21 10:04 10/21/21 10:10 Temperature 98.6 F 103.0 F H Temperature Source Oral Temporal Pulse Rate 110 H Respiratory Rate 18 Respiratory Effort Normal Non-Labored Respiratory Pattern Normal Blood Pressure 99/58 L Blood Pressure Mean 71 Pulse Ox 100 Oxygen Delivery Method 10/21/21 10:24 10/21/21 10:31 10/21/21 10:49 Temperature 101.8 F H Temperature Source Oral Pulse Rate Respiratory Rate Respiratory Effort Respiratory Pattern Blood Pressure Blood Pressure Mean Pulse Ox 95 Oxygen Delivery Method Room Air Room Air 10/21/21 11:21 10/21/21 11:21 10/21/21 11:23 Temperature 98.1 F 98.1 F Temperature Source Oral Oral Pulse Rate 97 97 Respiratory Rate 22 H 22 H Respiratory Effort Respiratory Pattern Blood Pressure 112/63 112/63 Blood Pressure Mean 79 Pulse Ox 93 93 Oxygen Delivery Method Room Air Room Air 10/21/21 12:14 10/21/21 12:14 10/21/21 12:20 Temperature 98.5 F 98.5 F Temperature Source Oral Oral Pulse Rate 93 92 Respiratory Rate 16 16 Respiratory Effort Respiratory Pattern Blood Pressure 89/45 L 94/58 L Blood Pressure Mean 59 70 Pulse Ox 94 95 Oxygen Delivery Method Room Air Room Air [facility] <SANTOS Hadley - Last Filed: 10/21/21 12:36> [facility] Narrative Medical decision making narrative: Patient with multiple myeloma on chemo presents with fever and chills starting this morning. He appears well and nontoxic. Vital signs show BP 99/58, HR 110, temperature of 103.0F. Legs examination is really overall very benign which is slightly dry mucous membranes. Sepsis work-up was initiated. Labs show new leukopenia at 1.2 and absolute neutrophil count of 1.1, microcytic anemia at 11.0, normal platelets. There is mild hypokalemia at 3.3 which was replaced orally, otherwise normal electrolytes and renal function. Lactate is 2.9. CXR and UA are negative for infection. COVID and influenza testing both negative. Blood cultures are pending but as of now no source of infection is identified. He was given cefepime due to neutropenic fever and after fluids and Tylenol his vital signs have improved. Dr. Issa he recommended admission for 24 to 48 hours of continued antibiotics and Granix 480 mcg subcu once daily until blood cultures have returned. Case was discussed with Dr. Penaloza for admission. After 1 L IV fluids patient remained hypotensive 88/50s so will be admitted to ICU with additional fluids ordered. 1. History of multiple myeloma on chemotherapy 2. Neutropenic fever with no source 3. Hypokalemia 30 minutes of critical care time was spent by evaluation, review of prior records, reassessment, discussion with consultants, discussion with patient and family in treatment and planning. Lab Data Attestation: I reviewed the patient's lab results. Labs: Laboratory Results - last 24 hr 10/21/21 10/21/21 10/21/21 10:24 10:40 10:44 WBC 1.2 L* RBC 3.63 L Hgb 11.0 L Hct 34.5 L MCV 95.0 H MCH 30.3 MCHC 31.9 L RDW Std Deviation 51.3 H RDW Coeff of [place] 14.9 H Plt Count 204 MPV 8.9 Immature Gran % (Auto) 0.800 Neut % (Auto) 89.1 H Lymph % (Auto) 8.4 L [place] % (Auto) 1.7 Eos % (Auto) 0.0 Baso % (Auto) 0.0 Absolute Neuts (auto) 1.1 L Absolute Lymphs (auto) 0.10 L Nucleated RBC % 0 Differential Comment Diff Path Review May foll PT 12.9 INR 1.0 APTT 23.8 L Sodium Potassium Chloride Carbon Dioxide Anion Gap BUN Creatinine Estim Creat Clear Calc Est GFR (MDRD) Af Amer Est GFR (MDRD) Non-Af BUN/Creatinine Ratio Glucose Lactic Acid Calcium Total Bilirubin AST ALT Alkaline Phosphatase Total Protein Albumin Globulin Albumin/Globulin Ratio Urine Color Yellow Urine Clarity Clear Urine pH 6.0 Ur Specific [place] 1.015 Urine Protein 30 H Urine Glucose (UA) Normal Urine Ketones 5 H Urine Occult Blood Negative Urine Nitrite Negative Urine Bilirubin Negative Urine Urobilinogen Normal Ur Leukocyte Esterase Negative Urine RBC 0 SEEN Urine WBC 0 SEEN Ur Squamous Epith Cells 0 SEEN Urine Bacteria 0 SEEN Urine Mucus 0 SEEN 10/21/21 10/21/21 10:44 10:44 WBC RBC Hgb Hct MCV MCH MCHC RDW Std Deviation RDW Coeff of [place] Plt Count MPV Immature Gran % (Auto) Neut % (Auto) Lymph % (Auto) [place] % (Auto) Eos % (Auto) Baso % (Auto) Absolute Neuts (auto) Absolute Lymphs (auto) Nucleated RBC % Differential Comment Diff Path Review PT INR APTT Sodium 139 Potassium 3.3 L Chloride 108 H Carbon Dioxide 24.0 Anion Gap 7 BUN 14 Creatinine 0.97 Estim Creat Clear Calc 77.79 Est GFR (MDRD) Af Amer 98 Est GFR (MDRD) Non-Af 81 BUN/Creatinine Ratio 14.4 Glucose 80 Lactic Acid 2.9 H* Calcium 7.9 L Total Bilirubin 0.30 AST 12 L ALT 21 Alkaline Phosphatase 76 Total Protein 5.6 L Albumin 3.0 L Globulin 2.6 Albumin/Globulin Ratio 1.2 Urine Color Urine Clarity Urine pH Ur Specific [place] Urine Protein Urine Glucose (UA) Urine Ketones Urine Occult Blood Urine Nitrite Urine Bilirubin Urine Urobilinogen Ur Leukocyte Esterase Urine RBC Urine WBC Ur Squamous Epith Cells Urine Bacteria Urine Mucus Radiography Diagnostic Testing: Clinical Impression(s) from Imaging Studies Chest X-Ray 10/21/21 10:15 IMPRESSION: No acute pulmonary process Electronically Signed: Colton Barry MD at 11:04 EDT , ED attending interpretation shows normal heart size, no acute infiltrate, edema, or effusion. <Dr. Mian Maldonado MD - Last Filed: 10/21/21 20:58> [facility] Lab Data Labs: Laboratory Results - last 24 hr 10/21/21 10/21/21 10/21/21 10:24 10:40 10:44 WBC 1.2 L* RBC 3.63 L Hgb 11.0 L Hct 34.5 L MCV 95.0 H MCH 30.3 MCHC 31.9 L RDW Std Deviation 51.3 H RDW Coeff of [place] 14.9 H Plt Count 204 MPV 8.9 Immature Gran % (Auto) 0.800 Neut % (Auto) 89.1 H Lymph % (Auto) 8.4 L [place] % (Auto) 1.7 Eos % (Auto) 0.0 Baso % (Auto) 0.0 Absolute Neuts (auto) 1.1 L Absolute Lymphs (auto) 0.10 L Nucleated RBC % 0 Differential Comment Diff Path Review May foll PT 12.9 INR 1.0 APTT 23.8 L Sodium Potassium Chloride Carbon Dioxide Anion Gap BUN Creatinine Estim Creat Clear Calc Est GFR (MDRD) Af Amer Est GFR (MDRD) Non-Af BUN/Creatinine Ratio Glucose Lactic Acid Calcium Total Bilirubin AST ALT Alkaline Phosphatase Total Protein Albumin Globulin Albumin/Globulin Ratio Urine Color Yellow Urine Clarity Clear Urine pH 6.0 Ur Specific [place] 1.015 Urine Protein 30 H Urine Glucose (UA) Normal Urine Ketones 5 H Urine Occult Blood Negative Urine Nitrite Negative Urine Bilirubin Negative Urine Urobilinogen Normal Ur Leukocyte Esterase Negative Urine RBC 0 SEEN Urine WBC 0 SEEN Ur Squamous Epith Cells 0 SEEN Urine Bacteria 0 SEEN Urine Mucus 0 SEEN 10/21/21 10/21/21 10:44 10:44 WBC RBC Hgb Hct MCV MCH MCHC RDW Std Deviation RDW Coeff of [place] Plt Count MPV Immature Gran % (Auto) Neut % (Auto) Lymph % (Auto) [place] % (Auto) Eos % (Auto) Baso % (Auto) Absolute Neuts (auto) Absolute Lymphs (auto) Nucleated RBC % Differential Comment Diff Path Review PT INR APTT Sodium 139 Potassium 3.3 L Chloride 108 H Carbon Dioxide 24.0 Anion Gap 7 BUN 14 Creatinine 0.97 Estim Creat Clear Calc 77.79 Est GFR (MDRD) Af Amer 98 Est GFR (MDRD) Non-Af 81 BUN/Creatinine Ratio 14.4 Glucose 80 Lactic Acid 2.9 H* Calcium 7.9 L Total Bilirubin 0.30 AST 12 L ALT 21 Alkaline Phosphatase 76 Total Protein 5.6 L Albumin 3.0 L Globulin 2.6 Albumin/Globulin Ratio 1.2 Urine Color Urine Clarity Urine pH Ur Specific [place] Urine Protein Urine Glucose (UA) Urine Ketones Urine Occult Blood Urine Nitrite Urine Bilirubin Urine Urobilinogen Ur Leukocyte Esterase Urine RBC Urine WBC Ur Squamous Epith Cells Urine Bacteria Urine Mucus Radiography Diagnostic Testing: Clinical Impression(s) from Imaging Studies Chest X-Ray 10/21/21 10:15 IMPRESSION: No acute pulmonary process Electronically Signed: Colton Barry MD at 11:04 EDT Reading Location ID and State: [address] [place] [address] , Service support , Treatment and Re-Evaluation Narrative: I have personally performed a face to face assessment of the patient and have reviewed the JEFF Note. I performed a substantive portion of the visit including all aspects of the following. My perez findings include: History is consistent with fever that started this morning. He had chills. He had a fever a little over 103. However, the patient does not have any specific symptoms such as congestion, facial pain, dental pain, cough shortness of breath, abdominal pain, rash, dysuria. He did have chemotherapy for multiple myeloma on Saturday and prior Saturday. Evidently his white count on Saturday was at the low end of normal. He is on Decadron starting yesterday it sounds like. He contacted his pressfitter and was referred in here today. Exam shows patient in no acute distress. He is awake alert appropriate. He is not at all confused. No sinus tenderness. Lungs are clear. Saturations are normal. Abdomen is benign. No rashes or lesions. Medical Decison Making: Patient will have work-up including blood work, cultures, urine, chest x-ray. These results are pending at this time. Discharge Plan Dx/Rx/DC Orders Clinical Impression: Neutropenic fever, Multiple myeloma, Hypokalemia Disposition Disposition: Acute Care Hospital [facility] Discharge Date/Time: 10/21/21 13:25
[2021-10-21] MEDS: Acetaminophen 500 MG Tablet 1000 MG PO (10:31)
[2021-10-21 10:41] LABS: Bacteria 0 SEEN /hpf (None Seen); Mucous, Urine 0 SEEN /hpf (<or=2+); Red Blood Cells-Urine 0 SEEN /hpf (0-5); Squamous Epithelial Cells - UA 0 SEEN /hpf (0-5); White Blood Cells 0 SEEN /hpf (0-5)
[2021-10-21 10:49] LABS: Color, Urine Yellow (Yellow); Glucose, Dipstick Normal (Normal); Ketone-Dipstick 5 mg/dl (Negative); Leukocyte Esterase-Dipstick Negative /ul (Negative); Nitrite-Dipstick Negative (Negative); Occult Blood-Urine Negative /ul (Negative); Protein-Dipstick 30 mg/dl (Negative); Specific Gravity, Urine 1.015 (1.002-1.030); Urine Bilirubin Dipstick Negative (Negative); Urine Clarity Clear (Clear); Urine Urobilinogen Normal (Normal)
[2021-10-21] MEDS: 0.9% Normal Saline 1,000 ML 999 ML IV ×2 (10:49→12:18)
[2021-10-21 10:57] LABS: Absolute Neutrophil Count 1.1 X10^3/uL (2.0-7.7); Hematocrit 34.5 % (40-54); Lymphocyte % 8.4 % (19-41); Mean Corp Hgb Conc 31.9 g/dL (32-36); Mean Corpuscular Hgb 30.3 pg (27.0-32.0); Mean Platelet Vol. 8.9 fl (6.2-12.0); Monocyte# 0.02 X10^3/uL; Monocyte% 1.7 % (0-10); NRBC Flagged by Analyzer 0 % (0-5); Neutrophil # 1.06 X10^3/uL (2.7-7.7); Neutrophil % 89.1 % (47-70); POSITIVE COUNT YES; POSITIVE DIFFERENTIAL YES; Platelet Count 204 K/mm3 (150-450); RBC Distribution Width CV 14.9 % (11.6-14.6); RBC Distribution Width SD 51.3 fl (35.1-43.9); Red Blood Count 3.63 M/mm3 (4.6-6.2); White Blood Count 1.2 K/mm3 (4.4-11.0)
[2021-10-21 11:01] LABS: Differential Indicated SCAN CRITERIA MET
[2021-10-21 11:06] LABS: Prothrombin Time (Protime)PT. 12.9 SECONDS (11.7-14.9)
[2021-10-21 11:07] LABS: Partial Thromboplast Time 23.8 Seconds (24.1-36.2)
[2021-10-21 11:16] LABS: ALB/GLOB Ratio 1.2 RATIO (0.9-2.4); AST(SGOT) 12 U/L (15-37); Alanine Aminotransfer ALT/SGPT 21 U/L (16-61); Alkaline Phosphatase 76 U/L (45-117); Anion Gap 7 (5-15); BUN 14 mg/dL (7-18); BUN/Creat Ratio 14.4 RATIO (10-20); Calcium,Total 7.9 mg/dL (8.5-10.1); Chloride 108 mmol/L (98-107); Creatinine, Serum 0.97 mg/dL (0.70-1.30); EST Glomerular Filtration Rate 81 mL/min (>60); Est Glom Filt Rate - Afr Amer 98 mL/min (>60); Estimated Creatinine Clearance 77.79 ml/min; Globulin 2.6 g/dL (2.2-4.2); Glucose 80 mg/dL (74-106); Potassium 3.3 mmol/L (3.5-5.1); Protein, Total 5.6 g/dL (6.4-8.2); Sodium Level 139 mmol/L (136-145)
[2021-10-21 11:20] LABS: Lactic Acid 2.9 mmol/L (0.4-1.9)
[2021-10-21] MEDS: Potassium Chloride Oral Tablet 20 MEQ PO (12:17)
--- NOTE | 2021-10-21 12:39 | PCM.HP.STD ---
HPI - General General Date of Admission: 10/21/21 Date of Service: 10/21/21 Chief Complaint: Fever HPI Rasheed GOEL, is a 71 M recently diagnosed with multiple myeloma in August 2021 who began chemo a week prior to his admission. Patient did receive 2 doses of Velcade during the week. Patient woke up on the morning of his presentation with fever. He also did admit to chills. Denied any cough. Denied any dysuria. Patient called his oncologist and was directed to the emergency department. In the ED patient was found to be neutropenic and found to have relative hypotension. Initially did respond to IV fluid however systolic blood pressure dropped back to the 80s. Was also found to have lactic acidosis. An assessment of sepsis secondary to neutropenic fever made admitted to intensive care unit for further management [facility] Medical History (Updated 10/21/21 @ 13:[address] Sohail Martínez MD) Atrial fibrillation Cancer Home Medications aspirin 81 mg tablet,delayed release 81 mg PO BID 08/08/21 [History Last Taken Unknown] gabapentin 100 mg tablet 100 mg PO TID 08/08/21 [History Last Taken Unknown] acyclovir 400 mg tablet 400 mg PO BID 10/21/21 [History Last Taken Unknown] atenolol 25 mg tablet 12.5 mg PO QHS 10/21/21 [History Last Taken Unknown] bortezomib 3.5 mg injection powder for solution (Velcade) 1.3 mg IV TUFR 10/21/21 [History Last Taken Unknown] cyclobenzaprine 5 mg tablet 5 mg PO TID 10/21/21 [History Last Taken Unknown] dexamethasone 4 mg tablet (Decadron) 8 mg PO DAILY 10/21/21 [History Last Taken Unknown] flecainide 150 mg tablet 150 mg PO Q12H 10/21/21 [History Last Taken Unknown] lenalidomide 15 mg capsule (Revlimid) 15 mg PO DAILY 10/21/21 [History Last Taken Unknown] zoledronic acid 4 mg/100 mL in mannitol 5 %-water intravenous piggybck 1 ea IV QMONTH 10/21/21 [History Last Taken Unknown] Allergy/AdvReac Type Severity Reaction Status Date / Time No Known Allergies Allergy Verified 08/08/21 13:54 Family History (Updated 10/21/21 @ 12:[address] Sohail Martínez MD) Father No problems noted. Mother Brain tumor Social History (Updated 08/08/21 @ 14:[address] Sukhdeep Limon MD) household members: spouse Smoking Status: Never smoker substance use type: does not use ROS ROS Narrative GENERAL: fever, chills, HEENT: denies headache, sinus congestion, or drainage, RESPIRATORY: denies cough, sputum production, CARDIAC: denies chest pain, palpitations, orthopnea, PND GASTROINTESTINAL: denies abdominal pain, nausea, GENITOURINARY: denies dysuria, urgency, frequency, heamaturia EXTREMITY: denies swelling MUSCULOSKELETAL: denies current joint pain or tenderness NEUROLOGIC: denies focal numbness, weakness, tingling HEMATOLOGIC: denies easy bruising and/or hemorrhage INTEGUMENT: denies rashes PSYCHIATRIC: denies suicidal or homicidal ideation Vital Signs Vital Signs Vital Signs: 10/21/21 09:59 10/21/21 10:04 10/21/21 10:10 Temperature 98.6 F 103.0 F H Temperature Source Oral Temporal Pulse Rate 110 H Respiratory Rate 18 Respiratory Effort Normal Non-Labored Respiratory Pattern Normal Blood Pressure 99/58 L Blood Pressure Mean 71 Pulse Ox 100 Oxygen Delivery Method 10/21/21 10:24 10/21/21 10:31 10/21/21 10:49 Temperature 101.8 F H Temperature Source Oral Pulse Rate Respiratory Rate Respiratory Effort Respiratory Pattern Blood Pressure Blood Pressure Mean Pulse Ox 95 Oxygen Delivery Method Room Air Room Air 10/21/21 11:21 10/21/21 11:21 10/21/21 11:23 Temperature 98.1 F 98.1 F Temperature Source Oral Oral Pulse Rate 97 97 Respiratory Rate 22 H 22 H Respiratory Effort Respiratory Pattern Blood Pressure 112/63 112/63 Blood Pressure Mean 79 Pulse Ox 93 93 Oxygen Delivery Method Room Air Room Air 10/21/21 12:14 10/21/21 12:14 10/21/21 12:20 Temperature 98.5 F 98.5 F Temperature Source Oral Oral Pulse Rate 93 92 Respiratory Rate 16 16 Respiratory Effort Respiratory Pattern Blood Pressure 89/45 L 94/58 L Blood Pressure Mean 59 70 Pulse Ox 94 95 Oxygen Delivery Method Room Air Room Air Weight Weight: 92.533 kg Body Mass Index (BMI) 26.9 Physical Exam Narrative GENERAL: cooperative HEENT: Atraumatic; EYES; Anicteric, Normal Conjunctiva NECK; supple, normal thyroid, RESPIRATORY: Diminished to auscultation CARDIOVASCULAR: Regular S1 S2, GI: soft, normoactive bowel sounds, : No Renal angle tenderness; EXTREMITIES: No edema, no clubbing, MUSCULOSKELETAL: no muscle wasting NEURO: Awake; no lateralizing signs. SKIN: No Rash PSYCH; Flat affect Results Lab / Micro Data Result Diagrams: 10/21/21 10:40 10/21/21 10:44 Labs: Laboratory Results - last 24 hr 10/21/21 10:24: Urine Color Yellow, Urine Clarity Clear, Urine pH 6.0, Ur Specific [place] 1.015, Urine Protein 30 H, Urine Glucose (UA) Normal, Urine Ketones 5 H, Urine Occult Blood Negative, Urine Nitrite Negative, Urine Bilirubin Negative, Urine Urobilinogen Normal, Ur Leukocyte Esterase Negative, Urine RBC 0 SEEN, Urine WBC 0 SEEN, Ur Squamous Epith Cells 0 SEEN, Urine Bacteria 0 SEEN, Urine Mucus 0 SEEN 10/21/21 10:40: WBC 1.2 L*, RBC 3.63 L, Hgb 11.0 L, Hct 34.5 L, MCV 95.0 H, MCH 30.3, MCHC 31.9 L, RDW Std Deviation 51.3 H, RDW Coeff of [place] 14.9 H, Plt Count 204, MPV 8.9, Immature Gran % (Auto) 0.800, Neut % (Auto) 89.1 H, Lymph % (Auto) 8.4 L, [place] % (Auto) 1.7, Eos % (Auto) 0.0, Baso % (Auto) 0.0, Absolute Neuts (auto) 1.1 L, Absolute Lymphs (auto) 0.10 L, Nucleated RBC % 0, Differential Comment , Diff Path Review August10/21/21 10:44: PT 12.9, INR 1.0, APTT 23.8 L 10/21/21 10:44: Sodium 139, Potassium 3.3 L, Chloride 108 H, Carbon Dioxide 24.0, Anion Gap 7, BUN 14, Creatinine 0.97, Estim Creat Clear Calc 77.79, Est GFR (MDRD) Af Amer 98, Est GFR (MDRD) Non-Af 81, BUN/Creatinine Ratio 14.4, Glucose 80, Calcium 7.9 L, Total Bilirubin 0.30, AST 12 L, ALT 21, Alkaline Phosphatase 76, Total Protein 5.6 L, Albumin 3.0 L, Globulin 2.6, Albumin/Globulin Ratio 1.2 10/21/21 10:44: Lactic Acid 2.9 H* Micro: Microbiology 10/21/21 10:31 Nasal Secretion SARS-CoV-2 & FLU Antigen (Rapid) - Final Radiology Impression Chest X-Ray 10/21/21 10:15 IMPRESSION: No acute pulmonary process Electronically Signed: Colton Barry MD at 11:04 EDT , Assessment & Plan Assessment/Plan (1) Neutropenic fever: PLAN: Plan Patient is a 71-year-old gentleman admitted with fever 1. Sepsis ? Secondary to neutropenic fever. Patient has been admitted to the intensive care unit currently being managed with aggressive IV fluid resuscitation, broad-spectrum antibiotic therapy with Vanco and cefepime after cultures have been obtained. Patient response to initial therapy being monitored with serial lactic acid levels 2. Recent diagnosis of multiple myeloma ? Patient apparently has been mets to the spine and recently had surgery to T2 with fusion. Patient is on Revlimid did continue consult placed to patient's oncologist. Patient is on Decadron did continue 3. Paroxysmal A. fib ? Rate controlled on flecainide did continue 4. Anemia ? Secondary to patient multiple myeloma monitoring H&H with plans to transfuse if hemoglobin falls below 7 or patient is deemed to be symptomatic 5. DVT prophylaxis ? SC Lovenox Advance planning; did discuss with the patient and family regarding advanced directives as well as CODE STATUS. Did explain the various scenarios involved ( FULL CODE, DNR CCA, DNR CCA with no intubation, and DNR CC and what each meant) patient elected to full code with CPR and intubation if needed. Order was placed. Time spent on discussion 18 minutes. Total CC time spent evaluating patient, review of data, initial management orders, discussion with other providers involved in patient's care and subsequent review; 50-minute. Charges/Coding Procedures Hospitalists Procedures: 55145 Critial Care 1st Hr Multi Select Codes Hospitalists' Procedures Procedures: 87465 Critial Care 1st Hr and 32500 Advncd Care Plan 30 Min
--- NOTE | 2021-10-21 12:55 | ED.RN ---
CALLED [facility] FOR GRANLINDSAY ARREOLA- RENETTA NOT SENT UP TO ER.
[2021-10-21] MEDS: TBO-FILGRASTIM 480 MCG/0.8 ML ML SC (13:13)
[2021-10-21] MEDS: 0.9% Normal Saline 1,000 ML 200 ML IV (13:30)
[2021-10-21 14:51] LABS: Reflex Lactate? Y
[2021-10-21 15:48] LABS: Lactic Acid 1.7 mmol/L (0.4-1.9)
[2021-10-21] MEDS: cycloBENZAPRine HCl 5 MG TABLET PO ×2 (16:20→21:47)
[2021-10-21] MEDS: dexAMETHasone 4 MG Tablet 8 MG PO (16:21)
[2021-10-21] MEDS: Aspirin E.C. 81 MG Tablet PO (16:22)
[2021-10-21] MEDS: 0.9% Saline Lock 10 ML Syringe IV (16:25)
--- NOTE | 2021-10-21 17:36 | PCM.RX.CS ---
Consult Pharmacy has been consulted to manage selected antiobiotic: Vancomycin Type of Consult: New start Suspected Infection: Meningitis, Other - Neutropenic fever Prior Doses of Antibiotics Received/Current Regimen: Received 2000mg iv loading dose x 1 Labs: Sodium 139 mmol/L (136-145) 10/21/21 10:44 Potassium 3.3 mmol/L (3.5-5.1) L 10/21/21 10:44 Chloride 108 mmol/L (98-107) H 10/21/21 10:44 Carbon Dioxide 24.0 mmol/L (21.0-32.0) 10/21/21 10:44 Anion Gap 7 (5-15) 10/21/21 10:44 BUN 14 mg/dL (7-18) 10/21/21 10:44 Creatinine 0.97 mg/dL (0.70-1.30) 10/21/21 10:44 Est GFR (MDRD) Af Amer 98 mL/min (>60) 10/21/21 10:44 Est GFR (MDRD) Non-Af 81 mL/min (>60) 10/21/21 10:44 BUN/Creatinine Ratio 14.4 RATIO (10-20) 10/21/21 10:44 Glucose 80 mg/dL (74-106) 10/21/21 10:44 Microbiology: Microbiology 10/21/21 16:35 Mucosa - Nasopharyngeal Rapid RSV (DFA) - Final 10/21/21 16:35 Mucosa - Nasopharyngeal Influenza Types A,B Direct FA (HUMBERTO) - Final 10/21/21 10:31 Nasal Secretion SARS-CoV-2 & FLU Antigen (Rapid) - Final Weight used for dosin.3 kg Estimated Creatinine Clearance: 78 ml/min Goal Trough: 15-20 mcg/mL Pharmacy Plan for Drug Dosing: Will begin 1250mg iv q12h per protocol. Trough level ordered for 10.23.21 before 4th dose. Pharmacy Service will continue to monitor and adjust dosing as required. Follow-Up Labs: Trough Vancomycin - 7.18.22 @0330 before 0400 dose
[2021-10-21] MEDS: TITRATION PARAMETER CHANGE 1 EACH IV (18:31)
[2021-10-21] MEDS: 0.9% Normal Saline 1,000 ML 75 ML IV (21:42)
[2021-10-21] MEDS: Gabapentin 100 MG Capsule PO (21:47)
[2021-10-21] MEDS: Acyclovir 200 MG Capsule 400 MG PO (21:47)
[2021-10-21] MEDS: Flecainide 150 MG Tablet PO (21:47)
[2021-10-22] VITALS (13 sets, daily range): BP systolic 99–138; BP diastolic 61–78; PULSE 69–83; RESP 18–22; TEMP 36.2–36.7; O2SAT 95–100
[2021-10-22 04:10] LABS: Absolute Neutrophil Count 5.5 X10^3/uL (2.0-7.7); Hematocrit 31.7 % (40-54); Hemoglobin 10.2 g/dL (13.0-16.5); Mean Corp Hgb Conc 32.2 g/dL (32-36); Mean Corpuscular Hgb 30.5 pg (27.0-32.0); Mean Corpuscular Volume 94.9 fL (80-94); Mean Platelet Vol. 9.3 fl (6.2-12.0); NRBC Flagged by Analyzer 0 % (0-5); POSITIVE DIFFERENTIAL YES; POSITIVE MORPHOLOGY YES; Platelet Count 203 K/mm3 (150-450); RBC Distribution Width CV 15.3 % (11.6-14.6); RBC Distribution Width SD 52.7 fl (35.1-43.9); Red Blood Count 3.34 M/mm3 (4.6-6.2); White Blood Count 5.8 K/mm3 (4.4-11.0)
[2021-10-22 04:11] LABS: Differential Indicated SCAN CRITERIA MET
[2021-10-22 04:28] LABS: Anion Gap 5 (5-15); BUN 12 mg/dL (7-18); BUN/Creat Ratio 17.7 RATIO (10-20); Calcium,Total 7.5 mg/dL (8.5-10.1); Chloride 111 mmol/L (98-107); Creatinine, Serum 0.68 mg/dL (0.70-1.30); EST Glomerular Filtration Rate 122 mL/min (>60); Est Glom Filt Rate - Afr Amer 148 mL/min (>60); Estimated Creatinine Clearance 75.46 ml/min; Glucose 128 mg/dL (74-106); Magnesium 2.2 mg/dL (1.6-2.6); Potassium 3.9 mmol/L (3.5-5.1); Sodium Level 139 mmol/L (136-145)
[2021-10-22 05:11] LABS: Scan Smear per Review Criteria MANUAL DIFF
[2021-10-22 05:24] LABS: Lymphocyte 2 % (19-41); Metamyelocyte 8 % (0-1); Monocyte 4 % (0-10); Neutrophil-Band 24 % (0-5); Neutrophil-Segmented 62 % (47-70); Total Cells Counted 100 (MANUAL DIFF)
[2021-10-22 05:25] LABS: Absolute Lymphocyte Count 0.12 X10^3/uL (0.83-4.51); Lymphocyte # 0.12 X10^3/ul (0.83-4.51); Neutrophil # 5.47 X10^3/uL (2.7-7.7)
[2021-10-22 05:26] LABS: Platelet Estimate ADEQUATE (ADEQ)
[2021-10-22 05:27] LABS: Ovalocyte 1+; Red Cell Morphology N CHROM NORMAL (NORM C&C)
--- NOTE | 2021-10-22 05:35 | EX.PCM.CONCC ---
Assessment & Plan Assessment/Plan (1) Neutropenic fever: PLAN: Plan RECOMMENDATIONS: 1. Continue empiric antimicrobials while awaiting finalized blood and urine culture results. 2. Okay to stop continuous fluids from my perspective. 3. Continue appropriate DVT prophylaxis. 4. Continue Granix as ordered. 5. Encourage incentive spirometer use and mobilize patient as tolerated. 6. The patient is medically stable for transfer out of the intensive care unit. 7. Given the patient's lack of further ICU or pulmonary needs, will sign off. Please call with any additional questions. IMPRESSIONS: 1. Neutropenic fever The patient presented to the hospital with generalized malaise, chills and fever after recently being started on chemotherapy for multiple myeloma. While there was some initial concern for sepsis, aside from a mildly elevated lactate, there was no evidence of end-organ dysfunction. The patient is nontoxic in appearance. No definitive source of infection has yet to be identified. Therefore, sepsis has been ruled out from my perspective. Lactic acidemia has resolved with fluid resuscitation. The patient remains hemodynamically stable on room air. I would plan to continue empiric antimicrobials while awaiting finalized blood and urine culture results. Regardless, the patient is stable for transfer out of the medical intensive care unit. 2. Recent diagnosis of multiple myeloma Continue supportive measures as noted above along with Granix as ordered. 3. Anemia/paroxysmal atrial fibrillation Complicates care, management, recovery and prognosis. Continue home medications as indicated. This note was generated with [employer] dictation software. It may contain incorrect words, spelling, and punctuation that were not noted in checking the note before signing. HPI Consult Data Date of Consult: 10/22/21 HPI Narrative Reason for Consultation: Sepsis HPI Narrative: The patient is a 71-year-old male, with a history as outlined below, who presented to the emergency department on October 21 with generalized malaise, fevers and chills. The patient was apparently recently diagnosed with multiple myeloma and was just started on chemotherapy this past Saturday. He is currently followed by Dr. Martinez at [facility]. On presentation to the emergency department, the patient was noted to be febrile and tachycardic. Blood pressures were initially somewhat tenuous, but he was maintaining appropriate oxygen saturations on room air. Initial laboratory evaluation revealed a potassium of 3.3 with normal creatinine. 24% bandemia was noted. Lactate was elevated at 2.9. Urine analysis was unremarkable. Initial chest x-ray demonstrated no acute cardiopulmonary process. Rapid influenza and RSV were negative. Strep and urine Legionella antigens were negative. COVID antigen testing was negative. The patient received supplemental IV fluid hydration and was started on antimicrobials. He was subsequently admitted to the medical intensive care unit for further management. [facility] Medical History (Updated 10/21/21 @ 20:[address] Mian Maldonado MD) Atrial fibrillation Cancer Kidney stones Subdural hematoma Home Medications aspirin 81 mg tablet,delayed release 81 mg PO BID 08/08/21 [History Last Taken Unknown] gabapentin 100 mg tablet 100 mg PO TID 08/08/21 [History Last Taken Unknown] acyclovir 400 mg tablet 400 mg PO BID 10/21/21 [History Last Taken Unknown] atenolol 25 mg tablet 12.5 mg PO QHS 10/21/21 [History Last Taken Unknown] bortezomib 3.5 mg injection powder for solution (Velcade) 1.3 mg IV TUFR 10/21/21 [History Last Taken Unknown] cyclobenzaprine 5 mg tablet 5 mg PO TID 10/21/21 [History Last Taken Unknown] dexamethasone 4 mg tablet (Decadron) 8 mg PO DAILY Check with primary doctor 10/21/21 [History Last Taken Unknown] flecainide 150 mg tablet 150 mg PO Q12H Check with primary doctor 10/21/21 [History Last Taken Unknown] lenalidomide 15 mg capsule (Revlimid) 15 mg PO DAILY 10/21/21 [History Last Taken Unknown] zoledronic acid 4 mg/100 mL in mannitol 5 %-water intravenous piggybck 1 ea IV QMONTH Check with primary doctor 10/21/21 [History Last Taken 10/11/21 06:00] Allergy/AdvReac Type Severity Reaction Status Date / Time No Known Allergies Allergy Verified 08/08/21 13:54 Family History (Updated 10/21/21 @ 12:[address] Sohail Martínez MD) Father No problems noted. Mother Brain tumor Social History (Updated 08/08/21 @ 14:[address] Sukhdeep Limon MD) household members: spouse Smoking Status: Never smoker substance use type: does not use ROS Constitutional Constitutional: Reports chills, fatigue, fever(s) and malaise Eyes Eyes: Denies blurry vision or change in vision ENT HEENT: Denies dizziness, dysphagia, headache(s), loss taste/smell or nasal congestion Cardiovascular Cardiovascular: Denies chest pain or dyspnea Respiratory/Chest Respiratory/Chest: Denies chest tightness, cough or dyspnea Gastrointestinal Gastrointestinal: Denies abdominal pain, diarrhea, nausea or vomiting Genitourinary Genitourinary: Denies difficulty urinating Musculoskeletal Musculoskeletal: Denies arthralgias or back pain Integumentary Integumentary: Denies lesions, rash or skin ulcer Neurologic Neurologic: Denies abnormal gait or abnormal speech Psychiatric Psychiatric: Denies anxiety or depression Endocrine Endocrinology: Reports fatigue Hematologic/Lymphatic Hematologic/Lymphatic: Denies easy bleeding or easy bruising Physical Exam Const alert, oriented x3 and no apparent distress General Appearance: cooperative HEENT normocephalic, head/scalp atraumatic and moist oral mucous membranes Eyes PERRL, EOMs intact bilaterally and conjunctivae normal Neck supple General: trachea midline Chest inspection of chest normal Resp normal respiratory effort Auscultation: Negative for rales, rhonchi or wheezes Cardio regular rate and regular rhythm GI normal to inspection, nondistended, normoactive bowel sounds Extremity no clubbing, cyanosis or edema Skin no rashes or lesions noted Neuro CN's II-XII intact bilaterally, moves all extremities and no focal motor deficits Psych cooperative and affect normal Lab / Micro Data Result Diagrams: 10/22/21 04:00 10/22/21 04:00 Labs: Laboratory Results - last 24 hr 10/21/21 10:24: Urine Color Yellow, Urine Clarity Clear, Urine pH 6.0, Ur Specific [place] 1.015, Urine Protein 30 H, Urine Glucose (UA) Normal, Urine Ketones 5 H, Urine Occult Blood Negative, Urine Nitrite Negative, Urine Bilirubin Negative, Urine Urobilinogen Normal, Ur Leukocyte Esterase Negative, Urine RBC 0 SEEN, Urine WBC 0 SEEN, Ur Squamous Epith Cells 0 SEEN, Urine Bacteria 0 SEEN, Urine Mucus 0 SEEN 10/21/21 10:40: WBC 1.2 L*, RBC 3.63 L, Hgb 11.0 L, Hct 34.5 L, MCV 95.0 H, MCH 30.3, MCHC 31.9 L, RDW Std Deviation 51.3 H, RDW Coeff of [place] 14.9 H, Plt Count 204, MPV 8.9, Immature Gran % (Auto) 0.800, Neut % (Auto) 89.1 H, Lymph % (Auto) 8.4 L, [place] % (Auto) 1.7, Eos % (Auto) 0.0, Baso % (Auto) 0.0, Absolute Neuts (auto) 1.1 L, Absolute Lymphs (auto) 0.10 L, Nucleated RBC % 0, Differential Comment , Diff Path Review August foll 10/21/21 10:44: PT 12.9, INR 1.0, APTT 23.8 L 10/21/21 10:44: Sodium 139, Potassium 3.3 L, Chloride 108 H, Carbon Dioxide 24.0, Anion Gap 7, BUN 14, Creatinine 0.97, Estim Creat Clear Calc 77.79, Est GFR (MDRD) Af Amer 98, Est GFR (MDRD) Non-Af 81, BUN/Creatinine Ratio 14.4, Glucose 80, Calcium 7.9 L, Total Bilirubin 0.30, AST 12 L, ALT 21, Alkaline Phosphatase 76, Total Protein 5.6 L, Albumin 3.0 L, Globulin 2.6, Albumin/Globulin Ratio 1.2 10/21/21 10:44: Lactic Acid 2.9 H* 10/21/21 15:10: Lactic Acid 1.7 10/22/21 04:00: WBC 5.8, RBC 3.34 L, Hgb 10.2 L, Hct 31.7 L, MCV 94.9 H, MCH 30.5, MCHC 32.2, RDW Std Deviation 52.7 H, RDW Coeff of [place] 15.3 H, Plt Count 203, MPV 9.3, Immature Gran % (Auto) ANIMAL HOSPITAL CLERK, Neut % (Auto) ANIMAL HOSPITAL CLERK, Lymph % (Auto) ANIMAL HOSPITAL CLERK, [place] % (Auto) ANIMAL HOSPITAL CLERK, Eos % (Auto) ANIMAL HOSPITAL CLERK, Baso % (Auto) ANIMAL HOSPITAL CLERK, Absolute Neuts (auto) 5.5, Absolute Lymphs (auto) 0.12 L, Total Counted 100, Neutrophils % (Manual) 62, Band Neutrophils % 24 H, Lymphocytes % (Manual) 2 L, Monocytes % (Manual) 4, Metamyelocytes % 8 H, Nucleated RBC % 0, Diff Path Review August, Platelet Estimate ADEQUATE, RBC Morphology N CHROM, Ovalocytes 1+ 10/22/21 04:00: Sodium 139, Potassium 3.9, Chloride 111 H, Carbon Dioxide 23.0, Anion Gap 5, BUN 12, Creatinine 0.68 L, Estim Creat Clear Calc 75.46, Est GFR (MDRD) Af Amer 148, Est GFR (MDRD) Non-Af 122, BUN/Creatinine Ratio 17.7, Glucose 128 H, Calcium 7.5 L, Magnesium 2.2 Micro: Microbiology 10/21/21 15:10 Urine, Clean Catch Legionella Antigen - Final 10/21/21 15:10 Urine, Clean Catch Streptococcus pneumoniae Antigen (M - Final 10/21/21 16:35 Mucosa - Nasopharyngeal Rapid RSV (DFA) - Final 10/21/21 16:35 Mucosa - Nasopharyngeal Influenza Types A,B Direct FA (HUMBERTO) - Final 10/21/21 10:31 Nasal Secretion SARS-CoV-2 & FLU Antigen (Rapid) - Final Radiology Impression Chest X-Ray 10/21/21 10:15 IMPRESSION: No acute pulmonary process Electronically Signed: Colton Barry MD at 11:04 EDT , Charges/Coding Visit Charges Inpatient E&M: 27593 Init Hosp L3
[2021-10-22] MEDS: cycloBENZAPRine HCl 5 MG TABLET PO ×3 (06:28→21:57)
[2021-10-22] MEDS: Gabapentin 100 MG Capsule PO ×3 (06:28→21:57)
--- NOTE | 2021-10-22 07:24 | PCM.PN.HOSP ---
Subjective Subjective Patient seen did not require pressors. Lactic acid level trended down. WBC count trending up. Plan for patient to be transferred from the intensive care unit to [facility] floor Objective Data Objective Data Vital Signs: Vital Signs Temp Pulse Resp BP Pulse Ox O2 Del Method 97.2 F L 77 18 135/74 H 100 Room Air 10/22/21 04:00 10/22/21 07:00 10/22/21 07:00 10/22/21 07:00 10/22/21 07:00 10/22/21 07:00 Oxygen Delivery Method Room Air Weight: 92.397 kg Body Mass Index (BMI) 26.8 Intake & Output: Intake and Output for Last 24 Hours 10/20/21 10/21/21 10/22/21 23:59 23:59 23:59 Intake Total 4130.00 / 4130.00 842.5 / 842.5 Output Total 1100 / 1100 1300 / 1300 Balance 3030.00 / 3030.00 -457.5 / -457.5 Lab / Micro Data Result Diagrams: 10/22/21 04:00 10/22/21 04:00 Labs: Laboratory Results - last 24 hr 10/21/21 10:24: Urine Color Yellow, Urine Clarity Clear, Urine pH 6.0, Ur Specific [place] 1.015, Urine Protein 30 H, Urine Glucose (UA) Normal, Urine Ketones 5 H, Urine Occult Blood Negative, Urine Nitrite Negative, Urine Bilirubin Negative, Urine Urobilinogen Normal, Ur Leukocyte Esterase Negative, Urine RBC 0 SEEN, Urine WBC 0 SEEN, Ur Squamous Epith Cells 0 SEEN, Urine Bacteria 0 SEEN, Urine Mucus 0 SEEN 10/21/21 10:40: WBC 1.2 L*, RBC 3.63 L, Hgb 11.0 L, Hct 34.5 L, MCV 95.0 H, MCH 30.3, MCHC 31.9 L, RDW Std Deviation 51.3 H, RDW Coeff of [place] 14.9 H, Plt Count 204, MPV 8.9, Immature Gran % (Auto) 0.800, Neut % (Auto) 89.1 H, Lymph % (Auto) 8.4 L, [place] % (Auto) 1.7, Eos % (Auto) 0.0, Baso % (Auto) 0.0, Absolute Neuts (auto) 1.1 L, Absolute Lymphs (auto) 0.10 L, Nucleated RBC % 0, Differential Comment , Diff Path Review August foll 10/21/21 10:44: PT 12.9, INR 1.0, APTT 23.8 L 10/21/21 10:44: Sodium 139, Potassium 3.3 L, Chloride 108 H, Carbon Dioxide 24.0, Anion Gap 7, BUN 14, Creatinine 0.97, Estim Creat Clear Calc 77.79, Est GFR (MDRD) Af Amer 98, Est GFR (MDRD) Non-Af 81, BUN/Creatinine Ratio 14.4, Glucose 80, Calcium 7.9 L, Total Bilirubin 0.30, AST 12 L, ALT 21, Alkaline Phosphatase 76, Total Protein 5.6 L, Albumin 3.0 L, Globulin 2.6, Albumin/Globulin Ratio 1.2 10/21/21 10:44: Lactic Acid 2.9 H* 10/21/21 15:10: Lactic Acid 1.7 10/22/21 04:00: WBC 5.8, RBC 3.34 L, Hgb 10.2 L, Hct 31.7 L, MCV 94.9 H, MCH 30.5, MCHC 32.2, RDW Std Deviation 52.7 H, RDW Coeff of [place] 15.3 H, Plt Count 203, MPV 9.3, Immature Gran % (Auto) NUTRITION COUNSELOR, Neut % (Auto) NUTRITION COUNSELOR, Lymph % (Auto) NUTRITION COUNSELOR, [place] % (Auto) NUTRITION COUNSELOR, Eos % (Auto) NUTRITION COUNSELOR, Baso % (Auto) NUTRITION COUNSELOR, Absolute Neuts (auto) 5.5, Absolute Lymphs (auto) 0.12 L, Total Counted 100, Neutrophils % (Manual) 62, Band Neutrophils % 24 H, Lymphocytes % (Manual) 2 L, Monocytes % (Manual) 4, Metamyelocytes % 8 H, Nucleated RBC % 0, Diff Path Review August foll, Platelet Estimate ADEQUATE, RBC Morphology N CHROM, Ovalocytes 1+ 10/22/21 04:00: Sodium 139, Potassium 3.9, Chloride 111 H, Carbon Dioxide 23.0, Anion Gap 5, BUN 12, Creatinine 0.68 L, Estim Creat Clear Calc 75.46, Est GFR (MDRD) Af Amer 148, Est GFR (MDRD) Non-Af 122, BUN/Creatinine Ratio 17.7, Glucose 128 H, Calcium 7.5 L, Magnesium 2.2 Micro: Microbiology 10/21/21 15:10 Urine, Clean Catch Legionella Antigen - Final 10/21/21 15:10 Urine, Clean Catch Streptococcus pneumoniae Antigen (M - Final 10/21/21 16:35 Mucosa - Nasopharyngeal Rapid RSV (DFA) - Final 10/21/21 16:35 Mucosa - Nasopharyngeal Influenza Types A,B Direct FA (HUMBERTO) - Final 10/21/21 10:31 Nasal Secretion SARS-CoV-2 & FLU Antigen (Rapid) - Final Radiography Diagnostic Testing: Radiology Impression Chest X-Ray 10/21/21 10:15 IMPRESSION: No acute pulmonary process Electronically Signed: Colton Barry MD at 11:04 EDT , Physical Exam Narrative GENERAL: cooperative HEENT: Atraumatic; EYES; Anicteric, Normal Conjunctiva NECK; supple, normal thyroid, RESPIRATORY: Diminished to auscultation CARDIOVASCULAR: Regular S1 S2, GI: soft, normoactive bowel sounds, : No Renal angle tenderness; EXTREMITIES: No edema, no clubbing, MUSCULOSKELETAL: no muscle wasting NEURO: Awake; no lateralizing signs. SKIN: No Rash PSYCH; Flat affect Assessment & Plan Assessment/Plan (1) Neutropenic fever: PLAN: Plan Patient is a 71-year-old gentleman admitted with fever 1. Sepsis ? Secondary to neutropenic fever. Patient has been admitted to the intensive care unit currently being managed with aggressive IV fluid resuscitation, broad-spectrum antibiotic therapy with Vanco and cefepime after cultures have been obtained. Patient response to initial therapy being monitored with serial lactic acid levels ? 10/22/2021; Patient seen did not require pressors. Lactic acid level trended down. WBC count trending up. Plan for patient to be transferred from the intensive care unit to [facility] floor. We will also plan to continue with current antibiotic therapy pending culture results 2. Recent diagnosis of multiple myeloma ? Patient apparently has been mets to the spine and recently had surgery to T2 with fusion. Patient is on Revlimid did continue consult placed to patient's oncologist. Patient is on Decadron did continue 3. Chemo induced neutropenia ? Patient is on Granix with subsequent monitoring of CBC ordered 4. Anemia ? Secondary to patient multiple myeloma monitoring H&H with plans to transfuse if hemoglobin falls below 7 or patient is deemed to be symptomatic 5. Paroxysmal A. fib ? Rate controlled on flecainide did continue 6. DVT prophylaxis ? SC Lovenox Charges/Coding Visit Charges Inpatient E&M: 75064 Subs Hosp L3
[2021-10-22] MEDS: Aspirin E.C. 81 MG Tablet PO ×2 (08:48→16:46)
[2021-10-22] MEDS: Enoxaparin 40 MG/0.4 ML Syringe SC (08:49)
[2021-10-22] MEDS: TBO-FILGRASTIM 300 MCG/0.5 ML ML SC (08:49)
[2021-10-22] MEDS: Acyclovir 200 MG Capsule 400 MG PO ×2 (08:52→21:58)
[2021-10-22] MEDS: Flecainide 150 MG Tablet PO ×2 (08:52→21:58)
[2021-10-22] MEDS: 0.9% Saline Lock 10 ML Syringe IV (21:58)
[2021-10-23 02:00] VITALS: BP 121/85; PULSE 72; RESP 18; TEMP 36.6; O2SAT 97
[2021-10-23 04:41] LABS: Hemoglobin 9.2 g/dL (13.0-16.5); Mean Corp Hgb Conc 31.7 g/dL (32-36); Mean Corpuscular Hgb 30.2 pg (27.0-32.0); Mean Corpuscular Volume 95.1 fL (80-94); Mean Platelet Vol. 9.3 fl (6.2-12.0); POSITIVE COUNT YES; POSITIVE DIFFERENTIAL YES; POSITIVE MORPHOLOGY YES; Platelet Count 161 K/mm3 (150-450); RBC Distribution Width CV 15.3 % (11.6-14.6); Red Blood Count 3.05 M/mm3 (4.6-6.2); White Blood Count 10.4 K/mm3 (4.4-11.0)
[2021-10-23] MEDS: 0.9% Saline Lock 10 ML Syringe IV ×2 (04:45→09:12)
[2021-10-23 04:49] LABS: Differential Indicated MANUAL DIFF
[2021-10-23 04:58] LABS: Vancomycin, Trough Level 13.3 ug/mL (5.0-15.0)
[2021-10-23 05:34] LABS: Anion Gap 4 (5-15); BUN 8 mg/dL (7-18); BUN/Creat Ratio 13.5 RATIO (10-20); Calcium,Total 7.4 mg/dL (8.5-10.1); Chloride 111 mmol/L (98-107); Creatinine, Serum 0.59 mg/dL (0.70-1.30); EST Glomerular Filtration Rate 143 mL/min (>60); Est Glom Filt Rate - Afr Amer 173 mL/min (>60); Estimated Creatinine Clearance 75.46 ml/min; Glucose 83 mg/dL (74-106); Potassium 3.6 mmol/L (3.5-5.1); Sodium Level 140 mmol/L (136-145)
--- NOTE | 2021-10-23 05:42 | PCM.RX.CS ---
Consult Pharmacy has been consulted to manage selected antiobiotic: Vancomycin Type of Consult: Follow-up Labs: Sodium 140 mmol/L (136-145) 10/23/21 04:27 Potassium 3.6 mmol/L (3.5-5.1) 10/23/21 04:27 Chloride 111 mmol/L (98-107) H 10/23/21 04:27 Carbon Dioxide 25.0 mmol/L (21.0-32.0) 10/23/21 04:27 Anion Gap 4 (5-15) L 10/23/21 04:27 BUN 8 mg/dL (7-18) 10/23/21 04:27 Creatinine 0.59 mg/dL (0.70-1.30) L 10/23/21 04:27 Est GFR (MDRD) Af Amer 173 mL/min (>60) 10/23/21 04:27 Est GFR (MDRD) Non-Af 143 mL/min (>60) 10/23/21 04:27 BUN/Creatinine Ratio 13.5 RATIO (10-20) 10/23/21 04:27 Glucose 83 mg/dL (74-106) 10/23/21 04:27 Vancomycin Trough 13.3 ug/mL (5.0-15.0) 10/23/21 04:27 Microbiology: Microbiology 10/21/21 15:10 Urine, Clean Catch Urine Culture - Preliminary Culture exhibits no growth. 10/21/21 10:24 Urine, Clean Catch Urine Culture - Preliminary Culture exhibits no growth. 10/21/21 15:10 Urine, Clean Catch Legionella Antigen - Final 10/21/21 15:10 Urine, Clean Catch Streptococcus pneumoniae Antigen (M - Final 10/21/21 16:35 Mucosa - Nasopharyngeal Rapid RSV (DFA) - Final 10/21/21 16:35 Mucosa - Nasopharyngeal Influenza Types A,B Direct FA (HUMBERTO) - Final 10/21/21 10:31 Nasal Secretion SARS-CoV-2 & FLU Antigen (Rapid) - Final Goal Trough: 15-20 mcg/mL Pharmacy Plan for Drug Dosing: Pharmacy Service will continue to monitor and adjust dosing as required. TROUGH 13.3 AT 12 HRS. SCr DECREASED FROM 0.68 TO 0.59. INCREASE VANCO TO 1500 Q12 AND FOLLOW UP TROUGH PRIOR TO 4TH DOSE Follow-Up Labs: Trough Vancomycin Labs to be done on [date and time ordered]: 10/25 @ 7491
[2021-10-23] MEDS: Gabapentin 100 MG Capsule PO (06:41)
[2021-10-23] MEDS: cycloBENZAPRine HCl 5 MG TABLET PO (06:41)
[2021-10-23 06:48] LABS: Anisocytosis 1+; Macrocytosis 1+; Platelet Estimate ADEQUATE (ADEQ)
[2021-10-23 06:57] LABS: Absolute Neutrophil Count 9.3 X10^3/uL (2.0-7.7)
[2021-10-23 06:58] LABS: Absolute Lymphocyte Count 0.42 X10^3/uL (0.83-4.51); Lymphocyte 4 % (19-41); Metamyelocyte 1 % (0-1); Monocyte 5 % (0-10); Myelocyte 1 % (0-0); Neutrophil-Band 55 % (0-5); Neutrophil-Segmented 34 % (47-70); Total Cells Counted 100 (MANUAL DIFF)
[2021-10-23 08:58] VITALS: BP 129/79; PULSE 77; RESP 18; TEMP 36.6; O2SAT 100
[2021-10-23] MEDS: Aspirin E.C. 81 MG Tablet PO (09:01)
[2021-10-23] MEDS: Flecainide 150 MG Tablet PO (09:01)
[2021-10-23] MEDS: Enoxaparin 40 MG/0.4 ML Syringe SC (09:02)
[2021-10-23] MEDS: TBO-FILGRASTIM 300 MCG/0.5 ML ML SC (09:06)
[2021-10-23] MEDS: Acyclovir 200 MG Capsule 400 MG PO (09:12)
--- NOTE | 2021-10-23 09:29 | DCINST_ITS ---
Discharge Instructions Diet Discharge Diet: No restrictions Activity Discharge Activity: Return to Normal Activity Dressing / Incision Call your doctor if you observe: Fever of 101 or Higher, Shortness of breath, Dizziness, Fainting spells, Swelling in the ankles, Chest pain and Increased palpitations (irregular heartbeat) Follow Up Care Test Results: Test results from this visit will be discussed in further detail at your follow- up appointment, if applicable. Discharge Plan Admission Admit Date/Time: 10/21/21 12:28 Attending Provider: Lavon Candelario Primary Care Provider: Cresencio Rey Consulting Providers: Marito Dempsey ; Samy Gill ; Chanelel Yost NP ; Sohail Martínez Discharge Orders/Prescriptions Prescriptions: New levofloxacin 750 mg tablet 750 mg PO DAILY Qty: 7 0RF Continued aspirin 81 mg Tablet,Delayed Release (Dr/Ec) 81 mg PO BID gabapentin 100 mg Tablet 100 mg PO TID flecainide 150 mg Tablet 150 mg PO Q12H atenolol 25 mg Tablet 12.5 mg PO QHS acyclovir 400 mg Tablet 400 mg PO BID dexamethasone [Decadron] 4 mg Tablet 8 mg PO DAILY Rx Instructions: only on day of chemo and day after(2 doses each treatment) cyclobenzaprine 5 mg Tablet 5 mg PO TID bortezomib [Velcade] 3.5 mg Recon Soln 1.3 mg IV TUFR Rx Instructions: administer on days 1, 8, 15, and 22 of a 35-day/5-week cycle lenalidomide [Revlimid] 15 mg Capsule 15 mg PO DAILY Rx Instructions: swallow whole with glass of water; do not open, crush, chew , break, or dissolve zoledronic [id number] 4 mg/100 mL Piggyback 1 ea IV QMONTH Referrals / Follow Up: Cresencio Rey MD [Primary Care Provider] - Within 1 Week Disposition Disposition (needs filled in before D/C Order can be placed): Home, Self Care
--- NOTE | 2021-10-23 10:44 | PCM.DC.SUM ---
Providers Date of Admission: 10/21/21 Primary Care Physician: Dr. Cresencio Rey MD Consultations 10/21/21 13:24 Consult: Business Analysis Consultant / Pulmonary Medicine Routine Consulting Provider: Pulmonary Medicine lanette Harris Reason for Consult: sepsis EMERGENT Consult: No MD Notified: Yes Date Notified: 10/21/21 Time Notified: 19:55 Method of Notification: Text Reason For Visit: NEUTROPENIC FEVER Diagnosis Discharge Diagnosis (1) Neutropenic fever: Status: Acute Code(s): D70.9 - Neutropenia, unspecified; R50.81 - Fever presenting with conditions classified elsewhere Medications at Discharge Home Medications aspirin 81 mg tablet,delayed release 81 mg PO BID 08/08/21 gabapentin 100 mg tablet 100 mg PO TID 08/08/21 acyclovir 400 mg tablet 400 mg PO BID 10/21/21 atenolol 25 mg tablet 12.5 mg PO QHS 10/21/21 bortezomib 3.5 mg injection powder for solution (Velcade) 1.3 mg IV TUFR 10/21/21 cyclobenzaprine 5 mg tablet 5 mg PO TID 10/21/21 dexamethasone 4 mg tablet (Decadron) 8 mg PO DAILY Check with primary doctor 10/21/21 flecainide 150 mg tablet 150 mg PO Q12H Check with primary doctor 10/21/21 lenalidomide 15 mg capsule (Revlimid) 15 mg PO DAILY 10/21/21 zoledronic acid 4 mg/100 mL in mannitol 5 %-water intravenous piggybck 1 ea IV QMONTH Check with primary doctor 10/21/21 levofloxacin 750 mg tablet 750 mg PO DAILY #7 tabs 10/23/21 Hospital Course Operations None Procedures None Summary of Care Provided Minutes Spent on Discharge: 40 Hospital Course: Per HPI: JOSE ARMANDO GOEL, is a 71 M recently diagnosed with multiple myeloma in August 2021 who began chemo a week prior to his admission.? Patient did receive 2 doses of Velcade during the week.? Patient woke up on the morning of his presentation with fever.? He also did admit to chills.? Denied any cough.? Denied any dysuria.? Patient called his oncologist and was directed to the emergency department.? In the ED patient was found to be neutropenic and found to have relative hypotension.? Initially did respond to IV fluid however systolic blood pressure dropped back to the 80s.? Was also found to have lactic acidosis.? An assessment of sepsis secondary to neutropenic fever made admitted to intensive care unit for further management Hospital Course: 1. Sepsis of unknown etiology with neutropenic fever due to chemo induced neutropenia for his multiple myeloma?71-year-old male present to the hospital with neutropenic fever. He received Granix and had a significant recovery in his white count. All cultures have come back negative and he is remained afebrile. He was on cefepime and vancomycin and this will be changed to Levaquin on discharge for 7 days. He is on flecainide for his A. fib however he is on no other QT prolonging medications. I recommend that he follow-up with his PCP as well as his oncologist as an outpatient. I discussed with him the plan for discharge today and he expressed understanding of the risk benefits of going home and would like to go home today. I discussed with him that all of his cultures were negative and to continue with the antibiotic for another 7 days. 2. Paroxysmal A. fib is a medical condition which complicates his care. His home medications were continued where appropriate Physical Exam Const alert, oriented x3 and no apparent distress General Appearance: cooperative HEENT normocephalic and moist oral mucous membranes Eyes PERRL, EOMs intact bilaterally and conjunctivae normal Neck supple and no JVD Resp normal respiratory effort, no retractions, no use of accessory muscles and clear to auscultation bilaterally Auscultation: Negative for crackles, rales, rhonchi or wheezes Cardio regular rate, regular rhythm, S1 normal heart sound, S2 normal heart sound and no murmurs GI soft to palpation, non-tender and non-distended; Negative for hepatosplenomegaly Extremity no clubbing, cyanosis or edema Skin no rashes or lesions noted Neuro no focal motor deficits and no sensory deficits noted Psych affect normal Appearance: appropriate Weight / BMI Weight Weight: 203 lb 4.259 oz Body Mass Index (BMI) 26.8 ABG / Lab / Microbiology Data Result Diagrams: 10/23/21 04:27 10/23/21 04:27 Laboratory: Laboratory Results - last 24 hr 10/23/21 04:27: WBC 10.4, RBC 3.05 L, Hgb 9.2 L, Hct 29.0 L, MCV 95.1 H, MCH 30.2, MCHC 31.7 L, RDW Std Deviation 53.0 H, RDW Coeff of [place]tar 15.3 H, Plt Count 161, MPV 9.3, Neut % (Auto) Not Reportable, Absolute Neuts (auto) 9.3 H, Absolute Lymphs (auto) 0.42 L, Total Counted 100, Neutrophils % (Manual) 34 L, Band Neutrophils % 55 H, Lymphocytes % (Manual) 4 L, Monocytes % (Manual) 5, Metamyelocytes % 1, Myelocytes % 1 H, Diff Path Review August, Platelet Estimate ADEQUATE, Anisocytosis 1+, Macrocytosis 1+ 10/23/21 04:27: Sodium 140, Potassium 3.6, Chloride 111 H, Carbon Dioxide 25.0, Anion Gap 4 L, BUN 8, Creatinine 0.59 L, Estim Creat Clear Calc 75.46, Est GFR (MDRD) Af Amer 173, Est GFR (MDRD) Non-Af 143, BUN/Creatinine Ratio 13.5, Glucose 83, Calcium 7.4 L 10/23/21 04:27: Vancomycin Trough 13.3 Microbiology: Microbiology 10/21/21 15:10 Urine, Clean Catch Urine Culture - Final Culture exhibits no growth. 10/21/21 10:24 Urine, Clean Catch Urine Culture - Final Culture exhibits no growth. 10/21/21 10:35 Blood Culture (Wb) - Anticubital Left Blood Culture - Preliminary No growth in 48 hours. 10/21/21 10:44 Blood Culture (Wb) - Left Hand Blood Culture - Preliminary No growth in 48 hours. 10/21/21 15:10 Urine, Clean Catch Legionella Antigen - Final 10/21/21 15:10 Urine, Clean Catch Streptococcus pneumoniae Antigen (M - Final 10/21/21 16:35 Mucosa - Nasopharyngeal Rapid RSV (DFA) - Final 10/21/21 16:35 Mucosa - Nasopharyngeal Influenza Types A,B Direct FA (HUMBERTO) - Final 10/21/21 10:31 Nasal Secretion SARS-CoV-2 & FLU Antigen (Rapid) - Final D/C Instructions Discharge Diet: No restrictions Call your doctor if you observe: Fever of 101 or Higher, Shortness of breath, Dizziness, Fainting spells, Swelling in the ankles, Chest pain and Increased palpitations (irregular heartbeat) Meaningful Use Info Meaningful Use Diagnoses (Choose all that apply): None applicable Discharge Plan Admission Admit Date/Time: 10/21/21 12:28 Attending Provider: Lavon Candelario Primary Care Provider: Cresencio Rey Consulting Providers: Marito Dempsey ; Samy Gill ; Chanelle Yost NP ; Sohail Martínez Discharge Orders/Prescriptions Prescriptions: New levofloxacin 750 mg tablet 750 mg PO DAILY Qty: 7 0RF Continued aspirin 81 mg Tablet,Delayed Release (Dr/Ec) 81 mg PO BID gabapentin 100 mg Tablet 100 mg PO TID flecainide 150 mg Tablet 150 mg PO Q12H atenolol 25 mg Tablet 12.5 mg PO QHS acyclovir 400 mg Tablet 400 mg PO BID dexamethasone [Decadron] 4 mg Tablet 8 mg PO DAILY Rx Instructions: only on day of chemo and day after(2 doses each treatment) cyclobenzaprine 5 mg Tablet 5 mg PO TID bortezomib [Velcade] 3.5 mg Recon Soln 1.3 mg IV TUFR Rx Instructions: administer on days 1, 8, 15, and 22 of a 35-day/5-week cycle lenalidomide [Revlimid] 15 mg Capsule 15 mg PO DAILY Rx Instructions: swallow whole with glass of water; do not open, crush, chew , break, or dissolve zoledronic annu-wbavaqzu-sekdb 4 mg/100 mL Piggyback 1 ea IV QMONTH Referrals / Follow Up: Cresencio Rey MD [Primary Care Provider] - 10/26/21 3:20 pm (Will be meeting with Dr. Stallings ) Disposition Disposition (needs filled in before D/C Order can be placed): Home, Self Care Charges/Coding Visit Charges Inpatient E&M: 03328 Disch Hosp
--- NOTE | 2021-10-23 10:50 | CASEMGMT ---
RN CM CAKE CUTTER MACHINE CM to room to meet with patient for initial transition planning/care coordination assessment. RN NED introduced self and role at [facility].? Pt voices understanding and consents to assessment at this time.? Pt resting in bed in no distress at this time.? Pt is A/O at this time and answers all questions appropriately.?? Care providers, pharmacy, and demographics verified/updated at this time. PCP: Dr Rey Specialists: Dr Martinez-oncology, Dr Gong--spinal surgeon @ [facility], Mery Sanchez-cardiology @ [facility] Preferred Pharmacy: [facility] [place] Insurance: MCR, MMO Prescription Benefit:? yes Living Will/HPOA:? Has both LW and HPOA, who is his , Kory LNOK: , Kory Living Arrangements: Lives w/ in one-story home w/basement w/one step to enter. Denies difficulty w/stairs. Independent. and pt share home tasks. Transportation: Pt states drives self and states no transportation concerns at this time.? also drives DME: ? Denies using any DME and denies needs.? Has a cane and walker available if needed. Does not use DME to ambulate @ baseline. HHC/SNF: No hx of either. No needs identified. Pt wishes to return home and states has no concerns with going home at time of discharge.? CM to follow for any discharge planning/needs.? Pt voices no concerns/needs at this time.? Advised pt to ask for CM if any questions/concerns/needs arise.? Voices understanding. PLAN: ?Home Carter GIRARD RN, CM
[2021-10-23 11:54] VITALS: BP 135/77; PULSE 82; RESP 18; TEMP 36.4; O2SAT 100
[2021-10-23 12:02] LABS: Pathologist Review Reviewed
[2021-10-23 12:08] LABS: Pathologist Review Reviewed
[2021-10-23 12:10] LABS: Pathologist Review Reviewed
== END 2021-10-23 12:01 | disposition home or self-care (01) | DRG 872 ==
LOC: ED 11:02 → ICU 12:34 → MS3 10-22 13:31
PROVIDERS: Physician Assistant; Admitting Provider Internal Medicine; Emergency Provider Emergency Medicine; PCP Family Medicine; Visit Provider Family Medicine
DX: A41.9 Sepsis, unspecified organism (principal); E87.2 Acidosis; C79.51 Secondary malignant neoplasm of bone; C90.00 Multiple myeloma not having achieved remission; D70.1 Agranulocytosis secondary to cancer chemotherapy; D70.9 Neutropenia, unspecified; I48.0 Paroxysmal atrial fibrillation; D50.9 Iron deficiency anemia, unspecified; E87.6 Hypokalemia; T45.1X5A Adverse effect of antineoplastic and immunosuppressive drugs, initial encounter; Z66 Do not resuscitate; Z92.21 Personal history of antineoplastic chemotherapy; Z79.82 Long term (current) use of aspirin; Z51.5 Encounter for palliative care; Z87.442 Personal history of urinary calculi
CPT/HCPCS: 36415; 71045; 80048; 80053; 80202; 81001; 83605; 83735; 85025; 85610; 85730; 87040; 87086; 87428; 87449; 87804; 87807; 93005; 97802; 99251; 99284; J7030; J7040; J7050; A4216; G0463; J1447

== ENCOUNTER → 2021-12-05 | Outpatient (CLI) | payer MEDICARE, OTHER, SELFPAY | END | disposition home or self-care (01) | LOC: LABSPEC 15:18 | PROVIDERS: PCP Family Medicine; Visit Provider Internal Medicine Hematology & Oncology | DX: C90.30 Solitary plasmacytoma not having achieved remission (principal) | CPT/HCPCS: 86850; 86900; 86901 ==

== ENCOUNTER → 2021-12-19 | Outpatient (CLI) | payer MEDICARE, OTHER, SELFPAY | END | disposition home or self-care (01) | LOC: LABSPEC 12:09 | PROVIDERS: PCP Family Medicine; Referring Provider Internal Medicine Hematology & Oncology; Visit Provider Internal Medicine Hematology & Oncology | DX: C90.00 Multiple myeloma not having achieved remission (principal) | CPT/HCPCS: 86850; 86900; 86901 ==

== ENCOUNTER → 2021-12-28 | Outpatient (CLI) | payer MEDICARE, OTHER, SELFPAY ==
[2021-12-28 15:05] LABS: Absolute Lymphocyte Count 0.29 X10^3/uL (0.83-4.51); Absolute Neutrophil Count 5.3 X10^3/uL (2.0-7.7); Basophil# 0.04 X10^3/uL; Basophil% 0.6 % (0-1); Eosinophil# 0.69 X10^3/uL; Eosinophils% 9.9 % (0-5); Hematocrit 42.1 % (40-54); Hemoglobin 13.6 g/dL (13.0-16.5); Lymphocyte # 0.29 X10^3/ul (0.83-4.51); Lymphocyte % 4.2 % (19-41); Mean Corp Hgb Conc 32.3 g/dL (32-36); Mean Corpuscular Hgb 29.1 pg (27.0-32.0); Monocyte# 0.62 X10^3/uL; Monocyte% 8.9 % (0-10); NRBC Flagged by Analyzer 0 % (0-5); Neutrophil # 5.31 X10^3/uL (2.7-7.7); Neutrophil % 76.1 % (47-70); POSITIVE DIFFERENTIAL YES; Platelet Count 295 K/mm3 (150-450); RBC Distribution Width CV 14.7 % (11.6-14.6); RBC Distribution Width SD 48.1 fl (35.1-43.9); Red Blood Count 4.68 M/mm3 (4.6-6.2)
[2021-12-28 15:06] LABS: Differential Indicated SCAN CRITERIA MET
[2021-12-28 16:09] LABS: Differential Comment SCANNED
[2021-12-28 16:10] LABS: ALB/GLOB Ratio 1.2 RATIO (0.9-2.4); AST(SGOT) 8 U/L (15-37); Alanine Aminotransfer ALT/SGPT 27 U/L (16-61); Albumin, Serum 3.5 g/dL (3.2-5.0); Alkaline Phosphatase 84 U/L (45-117); Anion Gap 6 (5-15); BUN 17 mg/dL (7-18); BUN/Creat Ratio 19.3 RATIO (10-20); Calcium,Total 8.9 mg/dL (8.5-10.1); Chloride 105 mmol/L (98-107); Creatinine, Serum 0.88 mg/dL (0.70-1.30); EST Glomerular Filtration Rate 90 mL/min (>60); Est Glom Filt Rate - Afr Amer 109 mL/min (>60); Glucose 83 mg/dL (74-106); Magnesium 2.2 mg/dL (1.6-2.6); Potassium 3.7 mmol/L (3.5-5.1); Protein, Total 6.5 g/dL (6.4-8.2); Sodium Level 140 mmol/L (136-145)
== END | disposition home or self-care (01) ==
LOC: MFPLAB 14:07
PROVIDERS: PCP Family Medicine; Referring Provider Family Medicine; Visit Provider Family Medicine
DX: C90.00 Multiple myeloma not having achieved remission (principal)
CPT/HCPCS: 36415; 80053; 83735; 85025

== ENCOUNTER → 2022-03-19 | Outpatient (CLI) | payer MEDICARE, OTHER, SELFPAY ==
[2022-03-19 13:51] LABS: PSA,Total - Annual Screen 9.11 ng/mL (0.00-4.00)
== END | disposition home or self-care (01) ==
LOC: LAB 11:39
PROVIDERS: PCP Family Medicine; Referring Provider Registered Nurse; Visit Provider Registered Nurse
DX: Z12.5 Encounter for screening for malignant neoplasm of prostate (principal)
CPT/HCPCS: 36415; 84153; G0103

== ENCOUNTER → 2022-06-07 | Outpatient (CLI) | payer MEDICARE, OTHER, SELFPAY ==
--- NOTE | 2022-06-07 09:46 | BD_ITS ---
STUDY: DUAL ENERGY X-RAY ABSORPTIOMETRY / DXA REASON FOR EXAM: Male, 71 years old. M810. TECHNIQUE: Bone Mineral Density (BMD) measurements of lumbar spine and bilateral hips were obtained. COMPARISON: None. FINDINGS: Lumbar Spine (L1-L4): g/cm2 (0.821) / T-score (-2.4) / Z-score (-1.5) Findings are suggestive of osteopenia with a high fracture risk. Left Femur Total: g/cm2 (0.830) / T-score (-1.3) / Z-score (-0.6) Left Femoral Neck: g/cm2 (0.571) / T-score (-2.6) / Z-score (-1.4) Right Femur Total: g/cm2 (0.777) / T-score (-1.7) / Z-score (-1.0) Right Femoral Neck: g/cm2 (0.578) / T-score (-2.6) / Z-score (-1.3) BD/Dexa Bone Density Study IMPRESSION: The patient is considered osteoporotic as outlined below according to World Neville Organization (WHO) criteria with a high fracture risk. Reference Information: The T-score is the number of standard deviations above or below the standard which is normal for young adults at their peak bone mineral density. The World Health Organization (WHO) interprets the T-scores as follows: Above -1 Normal bone density Between -1 and -2.5 Osteopenia Equal to / or below -2.5 Osteoporosis As a practical clinical guideline, osteopenia may be graded as follows: Mild -1 through -1.5 Moderate -1.6 through -2.0 Severe -2.1 through -2.4 The Z-score is the number of standard deviations above or below age-matched controls. A Z-score of less than -1.5 would be considered abnormal. References: 1. NIH Osteoporosis and Related Bone Diseases www osteo.org 2. International Society for Clinical Densitometry www iscd.org 3. National Osteoporosis Foundation www nof.org Electronically Signed: Leeroy Tay MD at 12:03 EST ,
== END | disposition home or self-care (01) ==
PROVIDERS: PCP Family Medicine; Referring Provider Family Medicine; Visit Provider Family Medicine
DX: M81.0 Age-related osteoporosis without current pathological fracture (principal)
CPT/HCPCS: 77080

== ENCOUNTER → 2022-07-10 | Outpatient (CLI) | payer MEDICARE, OTHER, SELFPAY ==
[2022-07-12 14:23] LABS: PSA, Free 0.64 ng/mL; PSA, Free % 8.8 % (.)
== END | disposition home or self-care (01) ==
LOC: MTLAB 14:13
PROVIDERS: PCP Family Medicine; Referring Provider Urology; Visit Provider Urology
DX: R97.20 Elevated prostate specific antigen [PSA] (principal)
CPT/HCPCS: 36415; 84153; 84154

== ENCOUNTER → 2022-07-31 | Outpatient (CLI) | payer MEDICARE, OTHER, SELFPAY ==
--- NOTE | 2022-07-31 | IMM_PTH ---
PATIENT: JOSE ARMANDO GOEL LOC: [facility] U#:[id number] AGE/SX: 71/M ROOM: RE07/31/[address]: Dr. Cliff Freitas MD : 1950 BED: DIS: 07/31/2022 SPEC #: [id number] RECD: 08/02/22 10:32 STATUS: TERE REQ #: [id number] CATHERINE: 07/31/22 00:[address]: Cliff Freitas DEPT: IMMUNOHISTOCHEMISTRY RECD BY: Kristin Barron ENTERED: 08/02/22 10:33 SP TYPE: IMMUNO OTHR DR: Dr. Cresencio Rey MD Tissues: A - PROSTATE RIGHT Procedures: P40 (add) 34BE12 (initial) PHYSICIAN & INSTITUTION [place] [id number] SPECIMEN INFORMATION: Tissue Source: A - Right prostate, apex, core biopsy Clinical Info: Elevated PSA Specimen Number: [id number] CPT code: 55114, 57713 METHODOLOGY: Deparaffinized sections of prefer/formalin-fixed tissue or PAP/DQ stained slides are incubated with monoclonal/polyclonal antibodies/oligonucleotide probes. Localization is made via biotin free immunoperoxidase method. Appropriate controls are performed and reacted as expected. Results on target cell population are indicated in the following table: RESULTS: ANTIBODY / CLONE RESULT Block A P40 (BC28) positive 34BE12 (34BE12) positive These tests were developed and their performance characteristics determined by [facility]. They may not have been cleared or approved by the U.S. Food and Drug Administration. The FDA has determined that such clearance or approval is not necessary. The above immunohistochemical/dualISH markers are ordered and reviewed by the Pathologist. INTERPRETATION: A. Right prostate, apex, core biopsy: Focal high-grade prostatic intraepithelial neoplasia (HGPIN). MARIA INES:erica 08/03/2022
--- NOTE | 2022-07-31 08:00 | PROSBIL_PTH ---
PATIENT: JOSE ARMANDO GOEL LOC: [facility] U#:[id number] AGE/SX: 71/M ROOM: RE07/31/[address]: Dr. Cliff Freitas MD : 1950 BED: DIS: 07/31/2022 SPEC #: [id number] RECD: 07/31/22 16:11 STATUS: TERE REQuoc #: [id number] CATHERINE: 07/31/22 08:[address]: Cliff Freitas DEPT: SURGICAL PATHOLOGY RECD BY: Karen Keyes ENTERED: 08/01/22 08:03 SP TYPE: PROST BX JENNI DR: Dr. Cresencio Rey MD Tissues: A - PROSTATE RIGHT B - PROSTATE RIGHT C - PROSTATE RIGHT D - PROSTATE LEFT E - PROSTATE LEFT F - PROSTATE LEFT Procedures: PROSTATE BX HEADER OPERATION: Prostate biopsy PRE-OP DIAGNOSIS: Elevated PSA TISSUE SUBMITTED: A - Right apex, B - Right mid, C - Right base, D - Left apex, E - Left mid, F - Left base MICROSCOPIC DIAGNOSIS A. Right prostate, apex, core biopsy: Focal high-grade prostatic intraepithelial neoplasia (HGPIN). See comment. B. Right prostate, mid, core biopsy: Prostatic tissue, negative for malignancy. Focal mild chronic inflammation. C. Right prostate, base, core biopsy: Prostatic tissue, negative for malignancy. D. Left prostate, apex, core biopsy: Prostatic tissue, negative for malignancy. Focal mild acute and chronic inflammation. E. Left prostate, mid, core biopsy: Prostatic tissue, negative for malignancy. F. Left prostate, base, core biopsy: Prostatic tissue, negative for malignancy. Focal mild acute and chronic inflammation. SJ:erica 08/02/2022 COMMENT A. Immunohistochemistry ([id number]) supports the above diagnosis. Case has been reviewed in consultation with Dr. Perdue who concurs with the above diagnosis. IDC:AM MICROSCOPIC DESCRIPTION Slides are reviewed. GROSS DESCRIPTION A - Received is one container designated prostate, right apex. The specimen consists of two elongated fragments of light christiansen-white soft tissue each measuring 1.0 cm in length and 0.1 cm in diameter. The specimen is totally submitted in one cassette. B - Received is one container designated prostate, right mid. The specimen consists of two elongated fragments of light christiansen-white soft tissue each measuring 1.0 cm in length and 0.1 cm in diameter. The specimen is totally submitted in one cassette. C - Received is one container designated prostate, right base. The specimen consists of two elongated fragments of light christiansen-white soft tissue each measuring 1.5 cm in length and 0.1 cm in diameter. The specimen is totally submitted in one cassette. D - Received is one container designated prostate, left apex. The specimen consists of two elongated fragments of light christiansen-white soft tissue each measuring 1.0 cm in length and 0.1 cm in diameter. The specimen is totally submitted in one cassette. E - Received is one container designated prostate, left mid. The specimen consists of two elongated fragments of light christiansen-white soft tissue each measuring 1.5 cm in length and 0.1 cm in diameter. The specimen is totally submitted in one cassette. F - Received is one container designated prostate, left base. The specimen consists of two elongated fragments of light christiansen-white soft tissue each measuring 1.0 cm in length and 0.1 cm in diameter. The specimen is totally submitted in one cassette. / AM:erica 08/01/2022 TC:5 CPT: G0146
== END | disposition home or self-care (01) ==
PROVIDERS: PCP Family Medicine; Visit Provider Urology
DX: R97.20 Elevated prostate specific antigen [PSA] (principal)
CPT/HCPCS: 88305; 88341; 88342; G0416

== ENCOUNTER → 2023-01-28 | Outpatient (CLI) | payer MEDICARE, OTHER, SELFPAY ==
[2023-01-28 10:52] LABS: Cholesterol 136 mg/dL (200); High Density Lipoprotein 43 mg/dL; PSA,Total- Diagnostic 9.04 ng/mL (0.0-4.0); Triglycerides 128 mg/dL; Very Low Density Lipoprotein 26 mg/dL (5-40)
[2023-01-29 12:09] LABS: PSA, Free 0.62 ng/mL; PSA, Free % 8.6 % (.)
== END | disposition home or self-care (01) ==
LOC: MTLAB 08:56
PROVIDERS: PCP Family Medicine; Referring Provider Family Medicine; Visit Provider Family Medicine
DX: R97.20 Elevated prostate specific antigen [PSA] (principal); C61 Malignant neoplasm of prostate; Z13.220 Encounter for screening for lipoid disorders
CPT/HCPCS: 36415; 80061; 84153; 84154

== ENCOUNTER → 2023-08-12 | Outpatient (CLI) | payer MEDICARE, OTHER, SELFPAY ==
[2023-08-12 17:48] LABS: PSA,Total- Diagnostic 7.19 ng/mL (0.0-4.0)
== END | disposition home or self-care (01) ==
PROVIDERS: PCP Family Medicine; Referring Provider Urology; Visit Provider Urology
DX: R97.20 Elevated prostate specific antigen [PSA] (principal)
CPT/HCPCS: 36415; 84153

== ENCOUNTER → 2024-04-03 | Outpatient (CLI) | payer MEDICARE, OTHER, SELFPAY | END | disposition home or self-care (01) | LOC: MTLAB 14:44 | PROVIDERS: PCP Family Medicine; Referring Provider Family Medicine; Visit Provider Family Medicine | DX: R19.7 Diarrhea, unspecified (principal) | CPT/HCPCS: 87493 ==

== ENCOUNTER → 2024-08-10 | Outpatient (CLI) | payer MEDICARE, OTHER, SELFPAY ==
[2024-08-10 11:21] LABS: PSA,Total- Diagnostic 3.38 ng/mL (0.00-4.00)
== END | disposition home or self-care (01) ==
LOC: MTLAB 08:24
PROVIDERS: PCP Family Medicine; Referring Provider Urology; Visit Provider Urology
DX: R97.20 Elevated prostate specific antigen [PSA] (principal)
CPT/HCPCS: 36415; 84153